=== PATIENT | male | born 1995 | race Caucasian/White ===

== ENCOUNTER 2022-11-04 17:14 | Emergency (ER) | payer SELFPAY ==
[2022-11-04 17:19] VITALS: BP 152/94; PULSE 78; RESP 20; TEMP 37.3; O2SAT 100; BMI 25.1
--- NOTE | 2022-11-04 17:26 | ED_ITS ---
HPI - Dental/Oral General Chief complaint: Dental/Oral Stated complaint: DENTAL PAIN Time Seen by Provider: 11/04/22 17:22 Source: patient Mode of arrival: walk-in Limitations: no limitations History of Present Illness HPI Narrative: patient is a 26-year-old male who presents to the emergency department for continued swelling to the right lower jaw. Patient has been seen in this emergency department previously for dental issues. He states he saw a dentist who would not give him any additional antibiotics because he needs a root canal and he does not have insurance to have this procedure. He took his last dose of amoxicillin earlier today for swelling and abscess to the right mandible. He states in the last day, the area has opened and started to drain. He reports improvement of swelling since this began but he is concerned that the abscess is still present. He has had no fevers or vomiting. Related Data Home Medications Medication Instructions Recorded Confirmed buspirone 10 mg tablet 10 mg PO DAILY 11/04/22 11/04/22 thyroid (pork) 30 mg tablet (MAINTENANCE DIRECTOR 30 mg PO DAILY 11/04/22 11/04/22 Thyroid) Previous Rx's Medication Instructions Recorded clindamycin HCl 150 mg capsule 300 mg PO Q6H 7 days #56 caps 11/04/22 naproxen sodium 550 mg tablet 550 mg PO BID PRN pain #10 tabs 11/04/22 Allergies Allergy/AdvReac Type Severity Reaction Status Date / Time No Known Drug Allergies Allergy Verified 11/04/22 17:17 Review of Systems ROS Constitutional Denies: fever or chills Ears, nose, mouth, and throat Denies: throat pain Cardiovascular Denies: chest pain Respiratory Denies: shortness of breath or cough Gastrointestinal Denies: nausea or vomiting Musculoskeletal Denies: back pain Integumentary/Breast Denies: rash Neurological Reports: headache Allergic/Immunologic Denies: hives PFSH PFSH Social History Smoking status: Former smoker Exam Narrative Exam Narrative: Gen.: Awake, alert, in no distress Head: Normocephalic, atraumatic ENT: Moist mucous membranes, edema of the gumline noted to the right mandible over tooth #29. No active drainage. No redness or swelling under the tongue. Clear speech. Respiratory: No respiratory distress Extremities: Moves extremities equally Psych: Normal mood and affect Neuro: No focal neuro deficit Skin: Warm, dry, intact Constitutional Vital Signs, click to edit/add: Last Vital Signs Temp 99.1 F 11/04/22 17:19 Pulse 78 11/04/22 17:19 Resp 20 11/04/22 17:19 BP 152/94 H 11/04/22 17:19 Pulse Ox 100 11/04/22 17:19 O2 Del Method Room Air 11/04/22 17:19 Course Vital Signs Vital signs: Vital Signs Temperature 99.1 F 11/04/22 17:19 Pulse Rate 78 11/04/22 17:19 Respiratory Rate 20 11/04/22 17:19 Blood Pressure 152/94 H 11/04/22 17:19 Pulse Oximetry 100 11/04/22 17:19 Oxygen Delivery Method Room Air 11/04/22 17:19 Temperature 99.1 F 11/04/22 17:19 Pulse Rate 78 11/04/22 17:19 Respiratory Rate 20 11/04/22 17:19 Blood Pressure 152/94 H 11/04/22 17:19 Pulse Oximetry 100 11/04/22 17:19 Oxygen Delivery Method Room Air 11/04/22 17:19 MDM - Dental/Oral MDM Narrative Medical decision making narrative: patient with healing abscess, will be started on seven days of clindamycin, encouraged follow-up with a dentist for definitive management. Return to the Emergency Room if symptoms change or worsen. Dental analgesia provided with NSAIDs for pain. Medical Records Attestation: I reviewed the patient's medical records. Discharge Plan Discharge Chief Complaint: Dental/Oral Clinical Impression: Toothache, Dental abscess Patient Disposition: Home, Self-Care Time of Disposition Decision: 17:35 Condition: Good Prescriptions / Home Meds: New clindamycin HCl 150 mg capsule 300 mg PO Q6H 7 Days Qty: 56 0RF naproxen sodium 550 mg tablet 550 mg PO BID PRN (Reason: pain) Qty: 10 0RF No Action buspirone 10 mg tablet 10 mg PO DAILY thyroid (pork) [MAINTENANCE DIRECTOR Thyroid] 30 mg tablet 30 mg PO DAILY Instructions: Dental Abscess (ED), Toothache (ED) Additional Instructions: follow up dentist Stand Alone Forms: Portal Instructions Referrals: ALEJANDRA POLLOCK DO [Primary Care Provider] - 1 week
[2022-11-04] MEDS: BENZOCAINE 30 ML, lidocaine HCL 15 ML MM (17:45)
[2022-11-04 17:46] VITALS: BP 148/82; PULSE 82; RESP 18; O2SAT 98
== END 2022-11-04 17:46 | disposition home or self-care (01) ==
PROVIDERS: Emergency Provider Emergency Medicine; PCP Family Medicine
DX: K04.7 Periapical abscess without sinus (principal); K08.89 Other specified disorders of teeth and supporting structures; Z79.899 Other long term (current) drug therapy; Z87.891 Personal history of nicotine dependence
CPT/HCPCS: 99283

== ENCOUNTER 2023-01-16 08:46 | Emergency (ER) | payer SELFPAY ==
[2023-01-16 08:53] VITALS: BP 144/80; PULSE 80; RESP 16; TEMP 37.1; O2SAT 100; BMI 25.1
--- NOTE | 2023-01-16 09:01 | PC.NURSE ---
pt c/o epigatric pain today into chest. has had h/o GERD. believes being on clindamycin for tooth infection is making acid reflux worse. denies any URI sx lately or any radiation anywhere.
--- NOTE | 2023-01-16 09:10 | ED.GENADUL1 ---
HPI - General Adult General Chief complaint: Chest Pain Stated complaint: CHEST PAIN Time Seen by Provider: 01/16/23 09:02 Mode of arrival: walk-in Limitations: no limitations History of Present Illness HPI narrative: this patient's here for substernal discomfort. He says it feels like acid reflux. He is now on day five of clindamycin. He attributes it to the clindamycin. In fact when he doubled his dose of clindamycin symptoms got worse. He does not have any nausea vomiting or diaphoresis. He has no shortness of breath. He's not had any recent viral type symptomatology. He is placed on the clindamycin because of a tooth infection. The pain is a little bit better now. He's not having any difficulty swallowing. Does not have a history of arrhythmia or cardiac problems. Otherwise he is healthy. Related Data Home Medications Medication Instructions Recorded Confirmed buspirone 10 mg tablet 10 mg PO DAILY 11/04/22 11/04/22 thyroid (pork) 30 mg tablet (PAINTER TUMBLING BARREL 30 mg PO DAILY 11/04/22 11/04/22 Thyroid) Previous Rx's Medication Instructions Recorded clindamycin HCl 150 mg capsule 300 mg PO Q6H 7 days #56 caps 11/04/22 naproxen sodium 550 mg tablet 550 mg PO BID PRN pain #10 tabs 11/04/22 Allergies Allergy/AdvReac Type Severity Reaction Status Date / Time No Known Drug Allergies Allergy Verified 01/16/23 08:53 [facility] Social History Smoking status: Never smoker Exam Narrative Exam Narrative: awake alert oriented ?3 pleasant vital signs are stable twelve-lead EKG done on arrival is normal as noted below. Constitutional skin is warm dry mucous membranes are moist. No evidence dehydration. HEENT there he does have new dental hardware in place. Exam of the molars were he has some discomfort there is no pointing abscess fluctuance or obvious gingivitis. Tongue uvula and palate are normal. Lungs were clear with no wheezes rales or rhonchi. Heart sounds are normal with no clicks rubs gallops or murmur. Legs did not have any pain or discomfort or swelling. Constitutional Vital Signs, click to edit/add: Last Vital Signs Temp 98.7 F 01/16/23 08:53 Pulse 80 01/16/23 08:53 Resp 16 01/16/23 08:53 BP 144/80 H 01/16/23 08:53 Pulse Ox 100 01/16/23 08:53 O2 Del Method Room Air 01/16/23 08:53 Course Vital Signs Vital signs: Vital Signs Temperature 98.7 F 01/16/23 08:53 Pulse Rate 80 01/16/23 08:53 Respiratory Rate 16 01/16/23 08:53 Blood Pressure 144/80 H 01/16/23 08:53 Pulse Oximetry 100 01/16/23 08:53 Oxygen Delivery Method Room Air 01/16/23 08:53 Temperature 98.7 F 01/16/23 08:53 Pulse Rate 80 01/16/23 08:53 Respiratory Rate 16 01/16/23 08:53 Blood Pressure 144/80 H 01/16/23 08:53 Pulse Oximetry 100 01/16/23 08:53 Oxygen Delivery Method Room Air 01/16/23 08:53 Medical Decision Making MDM Narrative Medical decision making narrative: patient has classic gastric reflux-type symptoms. He was advised to avoid caffeine products, alcohol, large meals. He'll be placed on Augmentin for five days. He'll be placed on Anaprox for the discomfort. Any should stop the clindamycin Discharge Plan Discharge Chief Complaint: Chest Pain Clinical Impression: Gastro-esophageal reflux Time of Disposition Decision: 09:13 Prescriptions / Home Meds: No Action buspirone 10 mg tablet 10 mg PO DAILY thyroid (pork) [PAINTER TUMBLING BARREL Thyroid] 30 mg tablet 30 mg PO DAILY clindamycin HCl 150 mg capsule 300 mg PO Q6H 7 Days Qty: 56 0RF naproxen sodium 550 mg tablet 550 mg PO BID PRN (Reason: pain) Qty: 10 0RF Additional Instructions: stop clindamycin/start Augmentin. Use Anaprox for pain Stand Alone Forms: Portal Instructions Referrals: ALEJANDRA POLLOCK DO [Primary Care Provider] - 1 week
--- NOTE | 2023-01-16 09:22 | ECG_ITS ---
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
== END 2023-01-16 09:21 | disposition home or self-care (01) ==
LOC: ER 09:11
PROVIDERS: Emergency Provider Emergency Medicine Emergency Medical Services; PCP Family Medicine
DX: K21.9 Gastro-esophageal reflux disease without esophagitis (principal); Z79.899 Other long term (current) drug therapy
CPT/HCPCS: 93005; 99283

== ENCOUNTER 2023-02-26 16:25 | Outpatient (OUT) | payer SELFPAY ==
--- OUTSIDE RECORDS SUMMARY | 2023-02-26 16:29 | XMS_ITS | CCD ---
Author Name Unknown Address [address] [facility] [address] [place] [id number] Organization [facility] Care Team Providers Care Special Education Teacher Name Role Phone PHYSICIAN, DEFAULT Unavailable Unavailable PHYSICIAN, DEFAULT Unavailable Unavailable PHYSICIAN, DEFAULT Unavailable Unavailable PHYSICIAN, DEFAULT Unavailable Unavailable PARK, DR POPPY Hernandez Attending Unavailable PARK, DR POPPY Hernandez Consulting Unavailable PARK, DR POPPY Hernandez Admitting Unavailable POLLOCK, DR ALEJANDRA Cummins Primary Care Unavailable POLLOCK, DR ALEJANDRA Cummins Attending Unavailable POLLOCK, DR ALEJANDRA Cummins Consulting Unavailable POLLOCK, DR ALEJANDRA Cummins Primary Care Unavailable POLLOCK, DR ALEJANDAR Cummins Admitting Unavailable POLLOCK, DR ALEJANDRA Cummins Attending Unavailable POLLOCK, DR ALEJANDRA Cummins Consulting Unavailable POLLOCK, DR ALEJANDRA Cummins Primary Care Unavailable POLLOCK, DR ALEJANDRA Cummins Admitting Unavailable PARK, DR POPPY Hernandez Attending Unavailable PARK, DR POPPY Hernandez Admitting Unavailable POLLOCK, DR ALEJANDRA Cummins Primary Care Unavailable Problems Active Problems Problem Classification Problem Date Documented Da te Episodic/Chronic Disorders of teeth and jaw (4 sources) Other specified disorders of teeth and supporting structures; Translations: [OTH SPEC DISORDERS TEETH SUPP STRCT] Onset: 10-28-2021 Episodic Heart valve disorders (1 source) Cardiac murmur, unspecified; Translations: [CARDIAC MURMUR UNSPECIFIED] Onset: 01-19-2022 Episodic Screening and history of mental health and substance abuse codes (1 source) Personal history of nicotine dependence; Translations: [PERSONAL HISTORY OF NICOTINE DEPEND] Onset: 10-30-2021 Episodic Thyroid disorders (4 sources) Hypothyroidism, unspecified; Translations: [HYPOTHYROIDISM UNSPECIFIED] Onset: 01-16-2022 Chronic Past or Other Problems Problem Classification Problem Date Documented Da te Episodic/Chronic Residual codes; unclassified (4 sources) Procedure and treatment not carried out due to patient leaving prior to being seen by health care provider; Translations: [PROC AND TX NOT CARRIED OUT PT LEAVE] Onset: 06-02-2021 Episodic Results Test Name Value Interpretation Reference Range Facility ECHOCARDIO M/2D COMPLETEon 1 03-18-2021 ECHOCARDIO M/2D COMPLETE Patient: MARY OWENS Exam Date: 01/16/2022 : 1995 Gender:M Ordering : DR ALEJANDRA POLLOCK D.O. Admission #: [id number] Family : Order #: [id number] CLICK HERE TO VIEW EXAM ECHOCARDIOGRAM REPORT PROCEDURE: CARDIO PULMONARY ECHOCARDIO M/2D COMP INDICATIONS: Murmur, Palpitations COMPARISON: None. DESCRIPTION: COMPLETE ECHOCARDIOGRAM Real-time transthoracic echocardiography with 2D, M-mode, spectral and color flow Doppler performed. QUALITY: Technical quality was good. LEFT VENTRICLE: Normal chamber size. Normal left ventricular wall thickness. LV EF: Global left ventricular systolic function is normal. Visual estimation of left ventricular ejection fraction is 60%. DIASTOLIC: Normal diastolic function. ATRIAL SEPTUM: Inadequately seen. LEFT ATRIUM: Normal chamber size. RIGHT ATRIUM: Normal chamber size. RIGHT VENTRICLE: Normal chamber size. Normal right ventricular systolic function. TRICUSPID VALVE: Normal mobility and thickness. No stenosis with trivial regurgitation. No evidence of pulmonary hypertension. RVSP 31mmHg. MITRAL VALVE: Normal mobility and thickness. No mitral valve prolapse. No evidence of mitral valve stenosis. There is no mitral annular calcification. Trivial mitral regurgitation. AORTIC VALVE: Normal trileaflet appearance. No visible sclerosis. Normal leaflet mobility. No evidence of aortic valve stenosis. No aortic regurgitation. AORTIC ROOT: Normal diameter and appearance. PULMONIC VALVE: Normal thickness and mobility. No stenosis. Trivial regurgitation. PERICARDIUM: No evidence of pericardial effusion. IVC: Collapses with inspirations. Normal size CONCLUSION: Global left ventricular systolic function is normal; visually estimated ejection fraction is 60 to 65%. Normal diastolic function. The right ventricle is normal in size and systolic function. No significant valvular abnormalities. Adult Echocardiography Procedure Report Left Ventricle LVEDD (3.7 - 5.6 cm): 4.56 cm LVESD (2.2 - 4.0 cm): 3.03 cm LVIVS thickness (0.6 - 1.2 cm): 0.99 cm LVPW thickness (0.5 - 1.0 cm): 1.05 cm e': 0.18 m/s E - e': 4.55 LVOT Max Gradient: 4.31 mm[Hg] Peak Velocity (LVOT): 1.04 m/s Mean Velocity (LVOT): 0.73 m/s LVOT Diameter 2.08 cm Left Ventricular Ejection Fraction: 62.43 %, 62.43 % Left Atrium LA Volume Index (2D A2C): 61.57 ml, 61.57 ml Left Atrium Systolic Dimension: 3.23 cm Mitral Valve MV E to A Ratio: 1.80 Mitral Valve A-Wave Peak Velocity: 0.44 m/s Mitral Valve E-Wave Peak Velocity: 0.80 m/s Right Ventricle RV Internal Diastolic Dimension: 3.02 cm Aorta AO Root Diam: 2.83 cm Ascending Ao Diam: 2.46 cm Aortic Valve AoV Area (Peak Samuel): 2.65 cm2, 2.65 cm2 AoV Area (VTI): 2.33 cm2, 2.33 cm2 Peak Velocity(Antegrade Flow): 1.33 m/s Peak Gradient(Antegrade Flow): 7.08 mm[Hg] Mean Velocity(Antegrade Flow): 0.96 m/s Mean Gradient(Antegrade Flow): 4.21 mm[Hg] Velocity Time Integral: 30.43 cm Tricuspid Valve Peak Velocity (Regurgitant Flow): 2.63 m/s, 2.36 m/s, 2.42 m/s Peak Velocity: 0.61 m/s Pulmonic Valve Peak Velocity: 1.04 m/s, 1.02 m/s Peak Gradient: 4.36 mm[Hg], 4.13 mm[Hg] Right Atrium Right Atrium Systolic Pressure: 36.16 ml, 36.16 ml Dictated by: Shagufta Hanson M.D. on 01/16/2022 at 15:29 Approved by: Shagufta Hanson M.D. on 01/16/2022 at 15:32 Normal [facility] FREE T3on 01-16-2022 FREE T3 3.14 pg/mlL Normal 2.18-3.98 [facility] Comment on above: Performed By: #### F T3, CMP, TSH #### [facility] [address] [place] [address] Dr. Patsy Funk FREE T4on 01-16-2022 Free T4 [Mass/Vol] 0.79 ng/dL Normal 0.76-1.46 [facility] Comment on above: Performed By: #### F T4 #### [facility] [address] [address] [address] Patsy Funk PROF 14(COMP METB)on 01-16- 022 Albumin [Mass/Vol] 4.2 g/dL Normal 3.4-5.0 [facility] Comment on above: Performed By: #### F T3, CMP, TSH #### [facility] [address] [address] [address] Patsy Funk Albumin/Globulin [Mass ratio] 1.2 {ratio} Normal [facility] Comment on above: Performed By: #### F T3, CMP, TSH #### [facility] [address] [address] [address] Patsy Funk ALP [Catalytic activity/Vol] 70 U/L Normal 46-116 [facility] Comment on above: Performed By: #### F T3, CMP, TSH #### [facility] [address] [address] [address] Patsy Funk ALT [Catalytic activity/Vol] 22 U/L Normal 16-63 [facility] Comment on above: Performed By: #### F T3, CMP, TSH #### [facility] [address] [address] [address] Patsy Funk Anion gap [Moles/Vol] 12.2 mmol/L Normal [facility] Comment on above: Performed By: #### F T3, CMP, TSH #### [facility] [address] [address] [address] Patsy Funk AST [Catalytic activity/Vol] 18 U/L Normal 15-37 [facility] Comment on above: Performed By: #### F T3, CMP, TSH #### [facility] [address] [place] [address] Dr. Patsy Funk Bilirubin [Mass/Vol] 0.7 mg/dL Normal 0.2-1.0 [facility] Comment on above: Performed By: #### F T3, CMP, TSH #### [facility] [address] [place] [address] Dr. Patsy Funk Calcium [Mass/Vol] 9.3 mg/dL Normal 8.5-10.1 [facility] Comment on above: Performed By: #### F T3, CMP, TSH #### [facility] [address] [address] [address] Patsy Funk Chloride [Moles/Vol] 104 mmol/L Normal 98-107 [facility] Comment on above: Performed By: #### F T3, CMP, TSH #### [facility] [address] [address] [address] Patsy Funk CO2 [Moles/Vol] 28.0 mmol/L Normal 21.0-32.0 [facility] Comment on above: Performed By: #### F T3, CMP, TSH #### [facility] [address] [place] [address] Dr. Patsy Funk Creatinine [Mass/Vol] 0.78 mg/dL Normal 0.70-1.30 [facility] Comment on above: Performed By: #### F T3, CMP, TSH #### [facility] [address] [address] [address] Patsy Funk EGFR-AF AZERBAIJANI >60 Normal >=60 [facility] Comment on above: Performed By: #### F T3, CMP, TSH #### [facility] [address] [place] [address] Dr. Patsy Funk EGFR-NON AF AZERBAIJANI >60 Normal >=60 [facility] Comment on above: Performed By: #### F T3, CMP, TSH #### [facility] [address] [address] [address] Patsy Funk Globulin (S) [Mass/Vol] 3.5 g/dL Normal [facility] Comment on above: Performed By: #### F T3, CMP, TSH #### [facility] [address] [address] [address] Patsy Funk Glucose [Mass/Vol] 87 mg/dL Normal 74-106 [facility] Comment on above: Performed By: #### F T3, CMP, TSH #### [facility] [address] [address] [address] Patsy Funk Potassium [Moles/Vol] 4.2 mmol/L Normal 3.5-5.1 [facility] Comment on above: Performed By: #### F T3, CMP, TSH #### [facility] [address] [place] [address] Dr. Patsy Funk Protein [Mass/Vol] 7.7 g/dL Normal 6.4-8.2 [facility] Comment on above: Performed By: #### F T3, CMP, TSH #### [facility] [address] [place] [address] Dr. Patsy Funk Sodium [Moles/Vol] 140 mmol/L Normal 136-145 [facility] Comment on above: Performed By: #### F T3, CMP, TSH #### [facility] [address] [place] [address] Dr. Patsy Funk Urea nitrogen [Mass/Vol] 13.0 mg/dL Normal 7.0-18.0 [facility] Comment on above: Performed By: #### F T3, CMP, TSH #### [facility] [address] [place] [address] Dr. Patsy Funk Urea nitrogen/Creatinine [Mass ratio] 16.7 mg/mg Normal [facility] Comment on above: Performed By: #### F T3, CMP, TSH #### [facility] [address] [place] [address] Dr. Patsy Funk TSHon 01-16-2022 TSH 0.690 uIU/mL Normal 0.358-3.740 [facility] Comment on above: Performed By: #### F T3, CMP, TSH #### [facility] [address] [place] [address] Dr. Patsy Funk FREE T3on 03-21-2021 FREE T3 2.98 pg/mlL Normal 2.77-5.27 [facility] Comment on above: Performed By: #### F T3, TSH #### [facility] [address] [place] [address] Dr. Patsy Funk FREE T4on 03-21-2021 Free T4 [Mass/Vol] 0.79 ng/dL Normal 0.78-2.19 [facility] Comment on above: Performed By: #### F T4 #### [facility] [address] [place] [address] Dr. Patsy Funk TSHon 03-21-2021 TSH 0.673 uIU/mL Normal 0.470-4.680 [facility] Comment on above: Performed By: #### F T3, TSH #### [facility] [address] [place] [address] Dr. Patsy Funk TSH RANGE SEE BELOW Normal [facility] Comment on above: Result Comment: <0.3 4 UIU/ml HYPERTHYROID 0.34-5.60 UIU/ml EUTHYROID >5.60 UIU/ml HYPOTHYROID Performed By: #### F T3, TSH #### [facility] [address] [place] [address] Dr. Patsy Funk Registrationon 02-26-2021 Registration [id number]# 1.00CD:127 Normal [facility] Consenton 02-23-2021 Consent [id number]# 1.00CD:127 Normal [facility] Lab Reportson 01-09-2021 Lab Reports [id number]#1 .00CD:127 Normal [facility] Semen Analysis, Fertilityon 01-08-2021 Abnormal Sperm Morphology 42 % [facility] Comment on above: Result Comment: WHO Standards used to classify morphology. Performed By: #### S EMCOMP #### [facility] [address] Abstinence Period, Semen A WEEK [facility] Comment on above: Performed By: #### S EMCOMP #### [facility] [address] Container Type, Semen Cup, Sterile [facility] Comment on above: Performed By: #### S EMCOMP #### [facility] [address] Immature Sperm 1 % Normal [facility] Comment on above: Performed By: #### S EMCOMP #### [facility] [address] [place] [address] Immotile Sperm 25 % Normal [facility] Comment on above: Performed By: #### S EMCOMP #### [facility] [address] [place] [address] Non-Progression Sperm Motili 1 % Normal [facility] Comment on above: Performed By: #### S EMCOMP #### [facility] [address] [place] [address] Normal Sperm Morphology 57 % Normal >/=30 [facility] Comment on above: Result Comment: WHO Standards used to classify morphology. Performed By: #### S EMCOMP #### [facility] [address] [place] [address] Rapid Progression Sperm Motili 72 % [facility] Comment on above: Result Comment: Refe rence: Total of Rapid and Slow Progression is >/= 50% or Rapid Progression only is >/= 25% Decreased motility percentage may be the result of non-viable or non-motile sperm. Performed By: #### S EMCOMP #### [address] Round Cell Concent, Semen 4 10*6/mL High <1 [facility] Comment on above: Result Comment: (Pot entially WBC's) Performed By: #### S EMCOMP #### [facility] [address] [place] [address] Semen Collection Method Masturbation [facility] Comment on above: Performed By: #### S EMCOMP #### [facility] [address] [place] [address] Semen Liquefaction Liquefied @ 60 min. [facility] Comment on above: Result Comment: PERF ORMED BY: [place] [address] PATHOLOGIST [employer] BONDER LESTER ROSSI M.D. Performed By: #### S EMCOMP #### [facility] [address] Semen Viscosity Normal Normal Normal [facility] Comment on above: Performed By: #### S EMCOMP #### [facility] [address] Semen Volume 3.5 mL Normal 2.0-5.0 [facility] Comment on above: Performed By: #### S EMCOMP #### [facility] [address] Slow Progression Sperm Motili 2 % Normal [facility] Comment on above: Performed By: #### S EMCOMP #### [facility] [address] Sperm Concentration 46 10*6/mL Normal >=20 [facility] Comment on above: Performed By: #### S EMCOMP #### [facility] [address] [place] [address] Lab Reportson 12-23-2020 Lab Reports [id number] .00CD:127 Normal [facility] Lab Reports [id number] .00CD:127 Normal [facility] Lab Reports [id number] .00CD:127 Normal [facility] Lab Reports [id number] .00CD:127 Normal [facility] Follicle Stimulating Hormone on 12-20-2020 Follicle Stimulating Hormone 6.5 m[iU]/mL Normal [facility] Comment on above: Result Comment: FEMA LE NORMALS (PREMENOPAUSE) MID-FOLLICULAR PHASE: 3.9-8.8 mIU/mL MID-CYCLE PEAK: 4.5-22.5 mIU/mL MID-LUTEAL PHASE: 1.8-5.1 mIU/mL FEMALE NORMALS (POSTMENOPAUSE): 16.7-113.6 mIU/mL MALE NORMALS: 1.3-19.3 mIU/mL Performed By: #### T EST, PRL, FSH #### [address] #### LH #### [facility] , Luteinizing Hormoneon 2020 Luteinizing Hormone 7.7 m[iU]/mL Normal 1.7-8.6 [facility] Comment on above: Result Comment: Perf ormed at: - [facility] [address] [id number] [employer] Machine Operator: Carrington Gayle PhD, Phone: [phone] PERFORMED BY: [place] [address] PATHOLOGIST [employer] LESTER ROSSI M.D. Performed By: #### T EST, PRL, FSH #### [address] #### LH #### [facility] , Prolactinon 12-20-2020 Prolactin 7.96 ng/mL Normal 2.64-13.13 [facility] Comment on above: Result Comment: PERF ORMED BY: [place] [address] PATHOLOGIST [employer] LESTER ROSSI M.D. Performed By: #### T EST, PRL, FSH #### [address] #### LH #### [facility] , Semen Analysis, Fertilityon 12-20-2020 Abnormal Sperm Morphology 44 % Normal [facility] Comment on above: Result Comment: WHO Standards used to classify morphology. Performed By: #### S EMCOMP #### [address] Abstinence Period, Semen [address] [facility] Comment on above: Result Comment: ADOLFO LE Performed By: #### S EMCOMP #### [address] Container Type, Semen Other Normal [facility] Comment on above: Performed By: #### S EMCOMP #### [facility] [address] [place] [address] Immature Sperm 8 % Normal [facility] Comment on above: Performed By: #### S EMCOMP #### [facility] [address] [place] [address] Immotile Sperm 34 % Normal [facility] Comment on above: Performed By: #### S EMCOMP #### [facility] [address] [place] [address] Non-Progression Sperm Motili 3 % Normal [facility] Comment on above: Performed By: #### S EMCOMP #### [facility] [address] [place] [address] Normal Sperm Morphology 48 % Normal >/=30 [facility] Comment on above: Result Comment: WHO Standards used to classify morphology. Performed By: #### S EMCOMP #### [facility] [address] [place] [address] Rapid Progression Sperm Motili 60 % [facility] Comment on above: Result Comment: Refe rence: Total of Rapid and Slow Progression is >/= 50% or Rapid Progression only is >/= 25% Decreased motility percentage may be the result of non-viable or non-motile sperm. Performed By: #### S EMCOMP #### [address] Round Cell Concent, Semen 7 10*6/mL High <1 [facility] Comment on above: Result Comment: (Pot entially WBC's) Performed By: #### S EMCOMP #### [facility] [address] [place] [address] Semen Collection Method Masturbation [facility] Comment on above: Performed By: #### S EMCOMP #### [facility] [address] [place] [address] Semen Liquefaction Liquefied @ 180 min. [facility] Comment on above: Result Comment: PERF ORMED BY: [place] [address] PATHOLOGIST [employer] LESTER ROSSI M.D. Performed By: #### S EMCOMP #### [facility] [address] [place] [address] Semen Viscosity High Critically abnormal Normal [facility] Comment on above: Performed By: #### S EMCOMP #### [facility] [address] [place] [address] Semen Volume 3.5 mL Normal 2.0-5.0 [facility] Comment on above: Performed By: #### S EMCOMP #### [facility] [address] [place] [address] Slow Progression Sperm Motili 3 % Normal [facility] Comment on above: Performed By: #### S EMCOMP #### [facility] [address] [place] [address] Sperm Concentration 39 10*6/mL Normal >=20 [facility] Comment on above: Performed By: #### S EMCOMP #### [address] Testosteroneon 12-20-2020 Testosterone 4.56 ng/mL Normal 1.75-7.81 [facility] Comment on above: Result Comment: PERF ORMED BY: [place] [address] PATHOLOGIST [employer] LESTER ROSSI M.D. Performed By: #### T EST, PRL, FSH #### [facility] [address] [place] [address] #### LH #### [facility] , Formson 12-19-2020 Forms [id number] .00CD:127 Normal [facility] Ambulatory Clinical Summaryo n 12-18-2020 Ambulatory Clinical Summary {[id number] Normal [facility] Ambulatory Clinical Summary {[id number]}CD:[id number] [facility] Patient Educationon 12-19-19 Patient Education Urology Male Infertility Male infertility refers to a man's inability to get a woman (get her to conceive) after a year of having sex regularly without using control. Both men and women can have fertility problems. What are the causes? This condition may be caused by: ? Problems with sperm. Infertility can result if a man is: ? Not producing enough sperm (low sperm count). ? Not producing enough sperm of normal size and shape (poor sperm morphology). ? Producing sperm that are not able to reach the egg (poor motility). ? Problems in a man's reproductive organs, such as: ? Enlarged veins (varicoceles), cysts (spermatoceles), or tumors of the testicles. ? Sexual dysfunction, including inability to have an erection. ? Injury to the testicles. ? Having had a testicle that did not drop to its location in the scrotum (undescended testicle). ? A defect, such as not having the tubes that carry sperm (vas deferens). ? Lack of certain hormones. ? Certain medical conditions. These may include: ? Diabetes. ? Cancer and cancer treatments, such as chemotherapy or radiation. ? Klinefelter syndrome. This is an inherited genetic disorder. ? Thyroid problems, such as an underactive or overactive thyroid. ? Cystic fibrosis. ? Infections. ? Sexually transmitted diseases. Infertility can be linked to more than one cause. The cause of infertility in some men is not known (unexplained infertility). What increases the risk? ? Age. A man's fertility declines with age. ? Smoking tobacco. ? Excessive alcohol use. ? Obesity. ? Emotional stress. ? Exposure of heat to the testicles, such as frequent use of a hot tub or sauna. ? Using drugs such as anabolic steroids, cocaine, and marijuana. ? Being exposed to environmental toxins, such as pesticides and lead. What are the signs or symptoms? The main sign of infertility in men is the inability to get a woman to conceive. How is this diagnosed? This condition may be diagnosed using: ? Semen tests to check sperm count, morphology, and motility. ? Blood tests to check hormone levels. ? Ultrasound of the scrotum to check for a varicocele or problems with the testicles. ? Transrectal ultrasound to check the prostate gland and to look for problems with the tubes that transport the semen (seminal vesicles). ? Taking a small sample of tissue from inside a testicle (biopsy). This is examined under a microscope. ? Blood tests to check for genetic abnormalities (genetic testing). To be diagnosed with infertility, both partners will have a physical exam. Both partners will also have an extensive medical and sexual history taken. Additional tests may be done. How is this treated? Treatment depends on the cause of infertility. Most cases of infertility in men are treated with medicine, surgery, or lifestyle changes. ? Men may take medicine to: ? Correct hormone problems. ? Treat other health conditions. ? Treat infections. ? Treat sexual dysfunction. ? Surgery may be done to: ? Remove blockages in the reproductive tract. ? Correct other structural problems of the reproductive tract. ? Lifestyle changes, such as: ? Reducing or not drinking alcohol. ? Stopping use of drugs such as anabolic steroids, cocaine, and marijuana. ? Losing weight. ? Stopping smoking. ? Using stress reduction techniques. Assisted reproductive technology (ART) Assisted reproductive technology (ART) refers to all treatments and procedures that combine eggs and sperm outside the body to try to help a couple conceive. Sperm is collected through normal ejaculation or surgery, or from a donor. ART is often combined with fertility drugs to stimulate ovulation in the woman. Sometimes ART is done using eggs retrieved from another woman's body (donor eggs) or from previously frozen fertilized eggs (embryos). There are different types of ART. These include: ? Intrauterine insemination (IUI). A long, thin tube is used to place sperm directly into a woman's uterus. This procedure: ? Is effective for infertility caused by sperm problems, including low sperm count and low motility. ? Can be used in combination with fertility drugs. ? In vitro fertilization (IVF). This is done when a woman's fallopian tubes are blocked or when a man has low sperm count. In this procedure: ? Fertility drugs are used to stimulate the ovaries to produce multiple eggs. ? Once mature, these eggs are removed from the body and combined with the sperm to be fertilized. ? The fertilized eggs are then placed into the woman's uterus. Follow these instructions at home: ? Take [id number] and prescription medicines only as told by your health care provider. ? Do not use any products that contain nicotine or tobacco, such as cigarettes and e-cigarettes. If you need help quitting, ask your health care provider. ? If you drink alcohol, limit how much you have to 0?2 d (more content not included)... Normal [facility] Urology Phone Visit- Telehea lthon 12-18-2020 Urology Phone Visit- Telehealth Chief Complaint [employer] due to low testosterone HPI Staff [employer] referred to our office due to low testosterone from Dr. Pollock. Recent Testosterone labs were done 09/01/2020 and was at 6.0 ( 9.3-28.5). Pt states that he wanted to get his testosterone check due to having trouble building muscle, and intermittent libido sx. Pt also stated that he may have infertility problems. Dysuria: no pain or burning Incomplete bladder emptying: _ Hematuria: denies any blood in urine Frequency: normal Urgency: none Nocturia: none Stream: average to strong stream, pt has intermittent straining, no hesitation no intermittent stream Post void dripping: none Wearing pads/ Depends: _ Urge incontinence: none Stress incontinence: none Incontinence without Sensory Awareness: none Abdominal pain: none Sexual complaints: no pain with erections, no blood in semen, No pain or burning with orgasms. No curving of penis. History of Present Illness Reviewed UA and testosterone. There have been no associated fever, chills, flank pain or blood in the urine. Pt. denies any pain/burning with urination at this time. Review of Systems PHQ Score Initial Depression Screen Score: 0 ROS - Provider Constitutional: denies weight loss, denies hot flashes. Eyes: denies eye problems. Gastrointestinal: denies nausea, denies vomiting. Cardiovascular: denies chest pain or angina. Integumentary: no dryness Musculoskeletal: denies musculoskeletal symptoms. ENMT: denies otolaryngeal symptoms. Respiratory: no shortness of breath. Heme/Lymph: denies easy bleeding tendency, denies easy bruising tendency. Psychiatric: no confusion, no anxiety. Genitourinary: denies dysuria, denies hematuria, denies discharge, denies urinary frequency, denies urinary hesitancy, denies nocturia, denies incontinence, denies genital sores, denies decreased libido, and denies erectile dysfunction. Physical Exam Vitals & Measurements HR: 69(Peripheral) RR: 18 BP: 144/91 HT: 178 cm HT: 178.0 cm WT: 78 kg WT: 78.0 kg BMI: 24.62 General Appearance: alert, no distress, well nourished, well developed male. Head: normocephalic . Eyes: normal orbit and globe. ENMT: normal examination of external ears. Chest: Lungs CTA, respirations non labored. Cardiovascular: regular rate and rhythm. Abdomen: soft, non distended, no tenderness, no mass or organomegaly, no hernia. Genitourinary: normal scrotum, normal testes, normal urethra, normal epididymis, normal vas deferens/spermatic cord. Flank Pain: none. Bladder: nonpalpable. Penis: normal shaft, normal glans. Lymph Nodes: unremarkable palpation of the cervical area. Skin: warm, dry, no bruising. Psychiatric: cooperative, affect appropriate for age, normal judgement, euthymic mood. Assessment/Plan 1. Infertility male (N46.9: Male infertility, unspecified) Pt. is concerned as he and his significant other have been unable to conceive. Free testosterone drawn on 09/01/20 - 6.0 (9.3 - 28.5). Pt. states having a decent sex drive and erections. Unremarkable exam today. UA shows no signs of blood nor infection. Will have pt. obtain a full infertility work up LH, FSH, Prolactin, Testosterone and a semen analysis. Will plan on follow-ups based on the results. All questions/concerns were discussed. Pt. to call the office if heencounters any issues prior. Pt. acknowledges understanding. I have reviewed the previous health record information and history for this pt. from Dr. Varela. Follow-up With When Contact Information NICHOLE PETIT, Abelino Hernandez, URL [address] [place] [address] [place] [address]- [phone] Additional Instructions: Patient Education Male Infertility I, Elicia Munson , personally scribed for Dr. Varela on 12/18/2020 14:00:04. . Documentation recorded by the scribe, Elicia Munson, accurately reflects the services(s) I performed and decisions made by me. Authenticated by Dr. Varela on 12/18/2020 14:04:12. Problem List/Past Medical History Ongoing Infertility male Historical No qualifying data Medications No active medications Allergies No Known Medication Allergies Social History Tobacco Former smoker, quit more than 30 days ago Tobacco Use:., 12/18/2020 Family History Diabetes mellitus type 1: Grandparent. Hypertension: Mother, Father and Grandparent. Seizure: Sister. Lab Results Ambulatory Point of Care Results Bilirubin Urine Dipstick: Negative (12/18/20 13:01:00) Blood Urine Dipstick: Negative (12/18/20 13:01:00) Glucose Urine Dipstick: Negative (12/18/20 13:01:00) Ketones Urine Dipstick: Negative (12/18/20 13:01:00) Leukocytes Urine Dipstick: Negative (12/18/20 13:01:00) Nitrite Urine Dipstick: Negative (12/18/20 13:01:00) Protein Urine Dipstick: Negative (12/18/20 13:01:00) Specific [place] Urine Dipstick: >=1.030 (12/18/20 13:01:00) Urine Appearance Urine Dipstick: Clear (12/18/20 13:01:00) Urine (more content not included)... Normal [facility] Comment on above: Result Comment: Elec tronically Signed By: Abelino VARELA MD\.br\Date and Time Signed: 12/18/20 14:04 EDT\.br\Electronically Co-Signed By: Elicia Munson MA\.br\Date and Time Co-Signed: 12/18/20 14:00 EDT Encounters Encounter Date Encounter Type Care Provider Facility Start: 01-16-2022 End: 01-17-[address] ALEJANDRA POLLOCK Facility:[facility] Start: 10-28-2021 End: 10-28-[address] POPPY PARK Facility:[facility] Start: 06-02-2021 End: 06-02-[address] POPPY PARK Facility:[facility] Start: 03-20-2021 End: 03-21-[address] ALEJANDRA POLLOCK Facility:[facility] Start: 01-14-2017 End: 01-15-2017 Ambulatory DEFAULT PHYSICIAN Facility:[facility] Start: 01-03-2017 End: 01-04-2017 Ambulatory DEFAULT PHYSICIAN Facility:[facility] Payers Date Payer Category Payer Unknown [id number] 2.16.84 [id number] 1994 Unknown [id number] 2.16.84 [id number] 1994 Unknown [id number] 2.16.84 [id number] 1994 Unknown [id number] 2.16.84 [id number] 1959 Self-pay [id number] 1960 Unknown [id number] Unknown Summary Purpose Family History No Family History Records FoundNo Family History Records FoundNo Family History Records FoundNo Family History Records Found Advance Directives No Advanced Directives Records FoundNo Advanced Directives Records FoundNo Advanced Directives Records FoundNo Advanced Directives Records Found Additional Source Comments (unrecognized sect ion and content) No Status Records FoundNo Status Records FoundNo Status Records FoundNo Status Records Found INFORMATION SOURCE (unrecogn ized section and content) DATE CREATED AUTHOR 08/12/2017 [facility] DATE CREATED AUTHOR AUTHOR'S ORGANIZ ATION 02/26/2021 [facility] DATE CREATED AUTHOR AUTHOR'S ORGANIZ ATION 03/13/2021 [facility] DATE CREATED AUTHOR AUTHOR'S ORGANIZ ATION 01/19/[address] [facility] FOR RECORDS PERTAINING TO PATIENTS WHO ARE OR HAVE BEEN ENROLLED IN A CHEMICAL DEPENDENCY/SUBSTANCEABUSE PROGRAM, SOME INFORMATION MAY BE OMITTED. This clinical summary was aggregated from multiple sources. Caution should be exercised in using it in the provision of clinical care. This summary normalizes information from multiple sources, and as a consequence, information in this document may materially change the coding, format and clinical context of patient data. In addition, data may be omitted in some cases. CLINICAL DECISIONS SHOULD BE BASED ON THE PRIMARY CLINICAL RECORDS. [employer] [facility]. provides no warranty or guarantee of the accuracy or completeness of information in this document.
[2023-02-26 16:50] LABS: Basophils Percent Auto 0.3 % (0.2-2.0); Eosinophils Absolute Auto 0.3 10^3/uL (0.0-0.7); Eosinophils Percent Auto 4.9 % (0.9-7.0); Hematocrit 42.6 % (42.0-54.0); Hemoglobin 14.3 g/dL (14.0-18.0); Lymphocytes Absolute Auto 1.8 10^3/uL (1.2-3.8); Lymphocytes Percent Auto 31.8 % (20.5-60.0); Mean Corpuscular HGB Conc 33.6 g/dL (29.9-35.2); Mean Corpuscular Hemoglobin 29.9 pg (25.9-34.0); Mean Corpuscular Volume 89.1 fL (80.0-94.0); Mean Platelet Volume 9.2 fL (9.5-13.5); Monocytes Absolute Auto 0.4 10^3/uL (0.3-0.8); Monocytes Percent Auto 7.3 % (1.7-12.0); Neutrophils Absolute Auto 3.2 10^3/uL (1.4-6.5); Neutrophils Percent Auto 55.7 % (43.0-75.0); Platelet Count 188 10^3/uL (150-450); Red Blood Count 4.78 10^6/uL (4.70-6.10); Red Cell Distribution Width 12.8 % (11.0-15.0); White Blood Count 5.7 10^3/uL (4.0-11.0)
[2023-02-26 17:43] LABS: Free T4 0.78 ng/dL (0.76-1.46)
[2023-02-26 17:47] LABS: Alanine Aminotransferase 27 U/L (16-63); Albumin Globulin Ratio 1.1; Albumin Level 3.8 g/dL (3.4-5.0); Alkaline Phosphatase 78 U/L (46-116); Anion Gap 9.1; Aspartate Amino Transferase 13 U/L (15-37); BUN Creatinine Ratio 11.8; Bilirubin Total 0.4 mg/dL (0.2-1.0); Calcium 8.9 mg/dL (8.5-10.1); Carbon Dioxide 29.1 mmol/L (21.0-32.0); Chloride 106 mmol/L (98-107); Estimated GFR (African America >60 (>=60); Estimated GFR (Non-African Ame >60 (>=60); Free T3 3.43 pg/mL (2.18-3.98); Globulin 3.6 g/dL; Glucose 106 mg/dL (74-106); Potassium 3.2 mmol/L (3.5-5.1); Sodium 141 mmol/L (136-145); Thyroid Stimulating Hormone 0.454 uIU/mL (0.358-3.740); Total Protein 7.4 g/dL (6.4-8.2)
[2023-02-28 06:09] LABS: HBsAg Screen Negative (Negative); HCV Ab Non Reactive (Non Reactive); HIV Ab/p24 Ag Screen Non Reactive (Non Reactive); Hep A Ab, IgM Negative (Negative); Hep B Core Ab, IgM Negative (Negative)
[2023-03-02 09:07] LABS: Neisseria gonorrhoeae, NAA Negative (Negative)
== END 2023-02-26 16:26 | disposition home or self-care (01) ==
PROVIDERS: PCP Family Medicine; Visit Provider Family Medicine
DX: Z20.2 Contact with and (suspected) exposure to infections with a predominantly sexual mode of transmission (principal); E03.9 Hypothyroidism, unspecified
CPT/HCPCS: 36415; 80053; 80074; 84439; 84443; 84481; 85025; 86695; 86696; 87389; 87491; 87591

== ENCOUNTER 2023-03-15 10:05 | Outpatient (OUT) | payer SELFPAY ==
--- OUTSIDE RECORDS SUMMARY | 2023-03-15 10:10 | XMS_ITS | CCD ---
Author Name Unknown Address [address] [facility] [address] [place] [address] [facility] Care Team Providers Care Ax Survey Worker Name Role Phone PHYSICIAN, DEFAULT Unavailable Unavailable [...] Unavailable POLLOCK, DR ALEJANDRA Cummins Admitting Unavailable POLLOCK, DR ALEJANDRA Cummins [...] : DR ALEJANDRA POLLOCK D.O. Admission #: [id number] Family : Order #: [id number] CLICK HERE TO VIEW EXAM ECHOCARDIOGRAM REPORT [...] M.D. on 01/16/2022 at 15:32 Normal [facility] FREE T3on 01-16-2022 FREE T3 3.14 pg/mlL Normal 2.18-3.98 [facility] Comment on above: Performed By: #### F T3, CMP, TSH #### [facility] [address] [place] [address] Dr. Patsy Funk FREE T4on 01-16-2022 Free T4 [Mass/Vol] 0.79 ng/dL Normal 0.76-1.46 [facility] Comment on above: Performed By: #### F T4 #### [facility] [address] [address] [address] Patsy Funk PROF 14(COMP METB)on 01-16- 022 Albumin [Mass/Vol] 4.2 g/dL Normal 3.4-5.0 [facility] Comment on above: Performed By: #### F T3, CMP, TSH #### [facility] [address] [address] [address] Patsy Funk Albumin/Globulin [Mass ratio] 1.2 {ratio} Normal [facility] Comment on above: Performed By: #### F T3, CMP, TSH #### [facility] [address] [address] [address] Patsy Funk ALP [Catalytic activity/Vol] 70 U/L Normal 46-116 [facility] Comment on above: Performed By: #### F T3, CMP, TSH #### [facility] [address] [address] [address] Patsy Funk ALT [Catalytic activity/Vol] 22 U/L Normal 16-63 [facility] Comment on above: Performed By: #### F T3, CMP, TSH #### [facility] [address] [address] [address] Patsy Funk Anion gap [Moles/Vol] 12.2 mmol/L Normal [facility] Comment on above: Performed By: #### F T3, CMP, TSH #### [facility] [address] [address] [address] Patsy Funk AST [Catalytic activity/Vol] 18 U/L Normal 15-37 [facility] Comment on above: Performed By: #### F T3, CMP, TSH #### [facility] [address] [place] [address] Dr. Patsy Funk Bilirubin [Mass/Vol] 0.7 mg/dL Normal 0.2-1.0 [facility] Comment on above: Performed By: #### F T3, CMP, TSH #### [facility] [address] [place] [address] Dr. Patsy Funk Calcium [Mass/Vol] 9.3 mg/dL Normal 8.5-10.1 [facility] Comment on above: Performed By: #### F T3, CMP, TSH #### [facility] [address] [address] [address] Patsy Funk Chloride [Moles/Vol] 104 mmol/L Normal 98-107 [facility] Comment on above: Performed By: #### F T3, CMP, TSH #### [facility] [address] [address] [address] Patsy Funk CO2 [Moles/Vol] 28.0 mmol/L Normal 21.0-32.0 [facility] Comment on above: Performed By: #### F T3, CMP, TSH #### [facility] [address] [place] [address] Dr. Patsy Funk Creatinine [Mass/Vol] 0.78 mg/dL Normal 0.70-1.30 [facility] Comment on above: Performed By: #### F T3, CMP, TSH #### [facility] [address] [address] [address] Patsy Funk EGFR-AF ESTONIAN >60 Normal >=60 [facility] Comment on above: Performed By: #### F T3, CMP, TSH #### [facility] [address] [place] [address] Dr. Patsy Funk EGFR-NON AF ESTONIAN >60 Normal >=60 [facility] Comment on above: Performed By: #### F T3, CMP, TSH #### [facility] [address] [address] [address] Patsy Funk Globulin (S) [Mass/Vol] 3.5 g/dL Normal [facility] Comment on above: Performed By: #### F T3, CMP, TSH #### [facility] [address] [address] [address] Patsy Funk Glucose [Mass/Vol] 87 mg/dL Normal 74-106 [facility] Comment on above: Performed By: #### F T3, CMP, TSH #### [facility] [address] [address] [address] Patsy Funk Potassium [Moles/Vol] 4.2 mmol/L Normal 3.5-5.1 [facility] Comment on above: Performed By: #### F T3, CMP, TSH #### [facility] [address] [place] [address] Dr. Patsy Funk Protein [Mass/Vol] 7.7 g/dL Normal 6.4-8.2 [facility] Comment on above: Performed By: #### F T3, CMP, TSH #### [facility] [address] [place] [address] Dr. Patsy Funk Sodium [Moles/Vol] 140 mmol/L Normal 136-145 [facility] Comment on above: Performed By: #### F T3, CMP, TSH #### [facility] [address] [place] [address] Dr. Patsy Funk Urea nitrogen [Mass/Vol] 13.0 mg/dL Normal 7.0-18.0 [facility] Comment on above: Performed By: #### F T3, CMP, TSH #### [facility] [address] [place] [address] Dr. Patsy Funk Urea nitrogen/Creatinine [Mass ratio] 16.7 mg/mg Normal [facility] Comment on above: Performed By: #### F T3, CMP, TSH #### [facility] [address] [place] [address] Dr. Patsy Funk TSHon 01-16-2022 TSH 0.690 uIU/mL Normal 0.358-3.740 [facility] Comment on above: Performed By: #### F T3, CMP, TSH #### [facility] [address] [place] [address] Dr. Patsy Funk FREE T3on 03-21-2021 FREE T3 2.98 pg/mlL Normal 2.77-5.27 [facility] Comment on above: Performed By: #### F T3, TSH #### [facility] [address] [place] [address] Dr. Patsy Funk FREE T4on 03-21-2021 Free T4 [Mass/Vol] 0.79 ng/dL Normal 0.78-2.19 [facility] Comment on above: Performed By: #### F T4 #### [facility] [address] [place] [address] Dr. Patsy Funk TSHon 03-21-2021 TSH 0.673 uIU/mL Normal 0.470-4.680 [facility] Comment on above: Performed By: #### F T3, TSH #### [facility] [address] [place] [address] Dr. Patsy Funk TSH RANGE SEE BELOW Normal [facility] Comment on above: Result Comment: <0.3 4 UIU/ml HYPERTHYROID 0.34-5.60 UIU/ml EUTHYROID >5.60 UIU/ml HYPOTHYROID Performed By: #### F T3, TSH #### [facility] [address] [place] [address] Dr. Patsy Funk Registrationon 02-26-2021 Registration [id number] 1.00CD:127 Normal [facility] Consenton 02-23-2021 Consent [id number]# 1.00CD:127 Normal [facility] Lab Reportson 01-09-2021 Lab Reports [id number]#1 .00CD:127 Normal [facility] Semen Analysis, Fertilityon 01-08-2021 Abnormal Sperm Morphology 42 % [facility] Comment on above: Result Comment: WHO Standards used to classify morphology. Performed By: #### S EMCOMP #### [facility] [address] Abstinence Period, Semen A WEEK [facility] Comment on above: Performed By: #### S EMCOMP #### [facility] [address] Container Type, Semen Cup, Sterile [facility] Comment on above: Performed By: #### S EMCOMP #### [facility] [address] Immature Sperm 1 % Normal [facility] Comment on above: Performed By: #### S EMCOMP #### [facility] [address] [place] [address] Immotile Sperm 25 % Normal [facility] Comment on above: Performed By: #### S EMCOMP #### [facility] [address] [place] [address] Non-Progression Sperm Motili 1 % Normal [facility] Comment on above: Performed By: #### S EMCOMP #### [facility] [address] [place] [address] Normal Sperm Morphology 57 % Normal >/=30 [facility] Comment on above: Result Comment: WHO Standards used to classify morphology. Performed By: #### S EMCOMP #### [facility] [address] [place] [address] Rapid Progression Sperm Motili 72 % [facility] Comment on above: Result Comment: Refe rence: Total of Rapid and Slow Progression is >/= 50% or Rapid Progression only is >/= 25% Decreased motility percentage may be the result of non-viable or non-motile sperm. Performed By: #### S EMCOMP #### [address] Round Cell Concent, Semen 4 10*6/mL High <1 [facility] Comment on above: Result Comment: (Pot entially WBC's) Performed By: #### S EMCOMP #### [facility] [address] [place] [address] Semen Collection Method Masturbation [facility] Comment on above: Performed By: #### S EMCOMP #### [facility] [address] [place] [address] Semen Liquefaction Liquefied @ 60 min. [facility] Comment on above: Result Comment: PERF ORMED BY: [place] [address] PATHOLOGIST [employer] LESTER ROSSI M.D. Performed By: #### S EMCOMP #### [facility] [address] Semen Viscosity Normal Normal Normal [facility] Comment on above: Performed By: #### S EMCOMP #### [facility] [address] Semen Volume 3.5 mL Normal 2.0-5.0 [facility] Comment on above: Performed By: #### S EMCOMP #### [facility] [address] Slow Progression Sperm Motili 2 % Normal [facility] Comment on above: Performed By: #### S EMCOMP #### [facility] [address] Sperm Concentration 46 10*6/mL Normal >=20 [facility] Comment on above: Performed By: #### S EMCOMP #### [facility] [address] [place] [address] Lab Reportson 12-23-2020 Lab Reports [id number]#1 .00CD:127 Normal [facility] Lab Reports [id number]#1 .00CD:127 Normal [facility] Lab Reports [id number]#1 .00CD:127 Normal [facility] Lab Reports [id number]#1 .00CD:127 Normal [facility] Follicle Stimulating Hormone on 12-20-2020 Follicle Stimulating Hormone 6.5 m[iU]/mL Normal [facility] Comment on above: Result Comment: FEMA LE NORMALS (PREMENOPAUSE) MID-FOLLICULAR PHASE: 3.9-8.8 mIU/mL MID-CYCLE PEAK: 4.5-22.5 mIU/mL MID-LUTEAL PHASE: 1.8-5.1 mIU/mL FEMALE NORMALS (POSTMENOPAUSE): 16.7-113.6 mIU/mL MALE NORMALS: 1.3-19.3 mIU/mL Performed By: #### T EST, PRL, FSH #### [address] #### LH #### [facility] , Luteinizing Hormoneon 2020 Luteinizing Hormone 7.7 m[iU]/mL Normal 1.7-8.6 [facility] Comment on above: Result Comment: Perf ormed at: - [facility] [address] [id number] [employer] Cook: Carrington Gayle PhD, Phone: [phone] PERFORMED BY: [place] [address] PATHOLOGIST [employer]SE MANAGER LESTER ROSSI M.D. Performed By: #### T EST, PRL, FSH #### [address] #### LH #### [facility] , Prolactinon 12-20-2020 Prolactin 7.96 ng/mL Normal 2.64-13.13 [facility] Comment on above: Result Comment: PERF ORMED BY: [place] [address] PATHOLOGIST [employer]SE MANAGER LESTER ROSSI M.D. Performed By: #### T EST, PRL, FSH #### [address] #### LH #### [facility] , Semen Analysis, Fertilityon 12-20-2020 Abnormal Sperm Morphology 44 % Normal [facility] Comment on above: Result Comment: WHO Standards used to classify morphology. Performed By: #### S EMCOMP #### [address] Abstinence Period, Semen 48 HOURS Normal [facility] Comment on above: Result Comment: ADOLFO LE Performed By: #### S EMCOMP #### [address] Container Type, Semen Other Normal [facility] Comment on above: Performed By: #### S EMCOMP #### [facility] [address] [place] [address] Immature Sperm 8 % Normal [facility] Comment on above: Performed By: #### S EMCOMP #### [facility] [address] [place] [address] Immotile Sperm 34 % Normal [facility] Comment on above: Performed By: #### S EMCOMP #### [facility] [address] [place] [address] Non-Progression Sperm Motili 3 % Normal [facility] Comment on above: Performed By: #### S EMCOMP #### [facility] [address] [place] [address] Normal Sperm Morphology 48 % Normal >/=30 [facility] Comment on above: Result Comment: WHO Standards used to classify morphology. Performed By: #### S EMCOMP #### [facility] [address] [place] [address] Rapid Progression Sperm Motili 60 % [facility] Comment on above: Result Comment: Refe rence: Total of Rapid and Slow Progression is >/= 50% or Rapid Progression only is >/= 25% Decreased motility percentage may be the result of non-viable or non-motile sperm. Performed By: #### S EMCOMP #### [address] Round Cell Concent, Semen 7 10*6/mL High <1 [facility] Comment on above: Result Comment: (Pot entially WBC's) Performed By: #### S EMCOMP #### [facility] [address] [place] [address] Semen Collection Method Masturbation [facility] Comment on above: Performed By: #### S EMCOMP #### [facility] [address] [place] [address] Semen Liquefaction Liquefied @ 180 min. [facility] Comment on above: Result Comment: PERF ORMED BY: [place] [address] PATHOLOGIST [employer]SE MANAGER LESTER ROSSI M.D. Performed By: #### S EMCOMP #### [facility] [address] [place] [address] Semen Viscosity High Critically abnormal Normal [facility] Comment on above: Performed By: #### S EMCOMP #### [facility] [address] [place] [address] Semen Volume 3.5 mL Normal 2.0-5.0 [facility] Comment on above: Performed By: #### S EMCOMP #### [facility] [address] [place] [address] Slow Progression Sperm Motili 3 % Normal [facility] Comment on above: Performed By: #### S EMCOMP #### [facility] [address] [place] [address] Sperm Concentration 39 10*6/mL Normal >=20 [facility] Comment on above: Performed By: #### S EMCOMP #### [address] Testosteroneon 12-20-2020 Testosterone 4.56 ng/mL Normal 1.75-7.81 [facility] Comment on above: Result Comment: PERF ORMED BY: [place] [address] PATHOLOGIST [employer]SE MANAGER LESTER ROSSI M.D. Performed By: #### T EST, PRL, FSH #### [facility] [address] [place] [address] #### LH #### [facility] , Formson 12-19-2020 Forms [id number]#1 .00CD:127 Normal [facility] Ambulatory Clinical Summaryo n 12-18-2020 Ambulatory Clinical Summary {[id number]}CD:[id number] Normal [facility] Ambulatory Clinical Summary {[id number]}CD:[id number] Ron Yoon [facility] Patient Educationon 12-19-19 Patient Education Urology Male [...] Follow these instructions at home: ? Take uwzf-mti-fsxnlbn and prescription medicines only as told by your health care provider. ? Do not use any products that contain nicotine or tobacco, such as cigarettes and e-cigarettes. If you need help quitting, ask your health care provider. ? If you drink alcohol, limit how much you have to 0?2 d (more content not included)... 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 Normal [facility] Comment on above: Result Comment: Elec tronically [...] Start: 01-14-2017 End: 01-15-2017 Ambulatory DEFAULT PHYSICIAN Facility:[facility] Start: 01-03-2017 End: 01-04-2017 Ambulatory DEFAULT PHYSICIAN Facility:[facility] Payers Date Payer Category Payer Unknown [id number] [id number] [id number] 1994 Unknown [id number] [id number] [id number] 1994 Unknown [id number] [id number] [id number] 1994 Unknown [id number] [id number] [id number] 1959 Self-pay [id number] 1959 Unknown [id number] Unknown Summary Purpose Family History No Family [...] section and content) DATE CREATED AUTHOR 08/12/2017 [facility] DATE CREATED AUTHOR AUTHOR'S ORGANIZ ATION 02/26/2021 [facility] DATE CREATED AUTHOR AUTHOR'S ORGANIZ ATION 03/13/2021 [facility] DATE CREATED AUTHOR AUTHOR'S ORGANIZ ATION 01/19/2022 [facility] FOR RECORDS PERTAINING TO PATIENTS WHO [...] BE BASED ON THE PRIMARY CLINICAL RECORDS. [facility]. provides no warranty or guarantee of the accuracy or completeness of information in this document.
[2023-03-15 12:53] LABS: Anion Gap 10.7; BUN Creatinine Ratio 14.7; Calcium 8.5 mg/dL (8.5-10.1); Carbon Dioxide 28.7 mmol/L (21.0-32.0); Chloride 105 mmol/L (98-107); Estimated GFR (African America >60 (>=60); Estimated GFR (Non-African Ame >60 (>=60); Glucose 86 mg/dL (74-106); Potassium 3.4 mmol/L (3.5-5.1); Sodium 141 mmol/L (136-145)
== END 2023-03-15 10:06 | disposition home or self-care (01) ==
PROVIDERS: PCP Family Medicine; Visit Provider Family Medicine
DX: E87.6 Hypokalemia (principal)
CPT/HCPCS: 36415; 80048

== ENCOUNTER 2023-03-18 14:55 | Emergency (ER) | payer SELFPAY ==
[2023-03-18] VITALS (9 sets, daily range): BP systolic 137–139; BP diastolic 83–89; PULSE 63–76; RESP 17–19; TEMP 36.7; O2SAT 98–100; BMI 26.5
--- OUTSIDE RECORDS SUMMARY | 2023-03-18 15:02 | XMS_ITS | CCD ---
Author Name Unknown Address [address] [facility] [address] [place] [id number] Organization [facility] Care Team Providers Care Mannequin Decorator Name Role Phone PHYSICIAN, DEFAULT Unavailable Unavailable [...] : DR ALEJANDRA POLLOCK D.O. Admission #: [id number] Family : Order #: [id number] CLICK HERE TO VIEW EXAM ECHOCARDIOGRAM REPORT [...] M.D. on 01/16/2022 at 15:32 Normal [facility] FREE T3on 01-16-2022 FREE T3 3.14 pg/mlL Normal 2.18-3.98 [facility] Comment on above: Performed By: #### F T3, CMP, TSH #### [facility] Laboratory [address] [place] [address] Dr. Patsy Funk FREE T4on 01-16-2022 Free T4 [Mass/Vol] 0.79 ng/dL Normal 0.76-1.46 [facility] Comment on above: Performed By: #### F T4 #### [facility] Laboratory [address] [address] [address] Patsy Funk PROF 14(COMP METB)on 01-16- 022 Albumin [Mass/Vol] 4.2 g/dL Normal 3.4-5.0 [facility] Comment on above: Performed By: #### F T3, CMP, TSH #### [facility] Laboratory [address] [address] [address] Patsy Funk Albumin/Globulin [Mass ratio] 1.2 {ratio} Normal [facility] Comment on above: Performed By: #### F T3, CMP, TSH #### [facility] [address] [address] [address] Patsy Funk ALP [Catalytic activity/Vol] 70 U/L Normal 46-116 [facility] Comment on above: Performed By: #### F T3, CMP, TSH #### [facility] [address] [address] [address] Patsy Funk ALT [Catalytic activity/Vol] 22 U/L Normal 16-63 [facility] Comment on above: Performed By: #### F T3, CMP, TSH #### [facility] [address] [address] [address] Patsy Funk Anion gap [Moles/Vol] 12.2 mmol/L Normal [facility] Comment on above: Performed By: #### F T3, CMP, TSH #### [facility] [address] [address] [address] Patsy Funk AST [Catalytic activity/Vol] 18 U/L Normal 15-37 [facility] Comment on above: Performed By: #### F T3, CMP, TSH #### [facility] [address] [place] [address] Dr. Patsy Funk Bilirubin [Mass/Vol] 0.7 mg/dL Normal 0.2-1.0 [facility] Comment on above: Performed By: #### F T3, CMP, TSH #### [facility] [address] [place] [address] Dr. Patsy Funk Calcium [Mass/Vol] 9.3 mg/dL Normal 8.5-10.1 [facility] Comment on above: Performed By: #### F T3, CMP, TSH #### [facility] [address] [address] [address] Patsy Funk Chloride [Moles/Vol] 104 mmol/L Normal 98-107 [facility] Comment on above: Performed By: #### F T3, CMP, TSH #### [facility] [address] [address] [address] Patsy Funk CO2 [Moles/Vol] 28.0 mmol/L Normal 21.0-32.0 [facility] Comment on above: Performed By: #### F T3, CMP, TSH #### [facility] [address] [place] [address] Dr. Patsy Funk Creatinine [Mass/Vol] 0.78 mg/dL Normal 0.70-1.30 [facility] Comment on above: Performed By: #### F T3, CMP, TSH #### [facility] [address] [address] [address] Patsy Funk EGFR-AF COMORAN >60 Normal >=60 [facility] Comment on above: Performed By: #### F T3, CMP, TSH #### [facility] [address] [place] [address] Dr. Patsy Funk EGFR-NON AF COMORAN >60 Normal >=60 [facility] Comment on above: Performed By: #### F T3, CMP, TSH #### [facility] [address] [address] [address] Patsy Funk Globulin (S) [Mass/Vol] 3.5 g/dL Normal [facility] Comment on above: Performed By: #### F T3, CMP, TSH #### [facility] [address] [address] [address] Patsy Funk Glucose [Mass/Vol] 87 mg/dL Normal 74-106 [facility] Comment on above: Performed By: #### F T3, CMP, TSH #### [facility] [address] [address] [address] Patsy Funk Potassium [Moles/Vol] 4.2 mmol/L Normal 3.5-5.1 [facility] Comment on above: Performed By: #### F T3, CMP, TSH #### [facility] [address] [place] [address] Dr. Patsy Funk Protein [Mass/Vol] 7.7 g/dL Normal 6.4-8.2 [facility] Comment on above: Performed By: #### F T3, CMP, TSH #### [facility] [address] [place] [address] Dr. Patsy Funk Sodium [Moles/Vol] 140 mmol/L Normal 136-145 [facility] Comment on above: Performed By: #### F T3, CMP, TSH #### [facility] [address] [place] [address] Dr. Patsy Funk Urea nitrogen [Mass/Vol] 13.0 mg/dL Normal 7.0-18.0 [facility] Comment on above: Performed By: #### F T3, CMP, TSH #### [facility] [address] [place] [address] Dr. Patsy Funk Urea nitrogen/Creatinine [Mass ratio] 16.7 mg/mg Normal [facility] Comment on above: Performed By: #### F T3, CMP, TSH #### [facility] [address] [place] [address] Dr. Patsy Funk TSHon 01-16-2022 TSH 0.690 uIU/mL Normal 0.358-3.740 [facility] Comment on above: Performed By: #### F T3, CMP, TSH #### [facility] [address] [place] [address] Dr. Patsy Funk FREE T3on 03-21-2021 FREE T3 2.98 pg/mlL Normal 2.77-5.27 [facility] Comment on above: Performed By: #### F T3, TSH #### [facility] [address] [place] [address] Dr. Patsy Funk FREE T4on 03-21-2021 Free T4 [Mass/Vol] 0.79 ng/dL Normal 0.78-2.19 [facility] Comment on above: Performed By: #### F T4 #### [facility] [address] [place] [address] Dr. Patsy Funk TSHon 03-21-2021 TSH 0.673 uIU/mL Normal 0.470-4.680 [facility] Comment on above: Performed By: #### F T3, TSH #### [facility] [address] [place] [address] Dr. Patsy Funk TSH RANGE SEE BELOW Normal [facility] Comment on above: Result Comment: <0.3 4 UIU/ml HYPERTHYROID 0.34-5.60 UIU/ml EUTHYROID >5.60 UIU/ml HYPOTHYROID Performed By: #### F T3, TSH #### [facility] [address] [place] [address] Dr. Patsy Funk Registrationon 02-26-2021 Registration [id number]# 1.00CD:127 Normal [facility] Consenton 02-23-2021 Consent [id number]# 1.00CD:127 Normal [facility] Lab Reportson 01-09-2021 Lab Reports [id number]#1 .00CD:127 Normal [facility] Semen Analysis, Fertilityon 01-08-2021 Abnormal Sperm Morphology 42 % [facility] Comment on above: Result Comment: WHO Standards used to classify morphology. Performed By: #### S EMCOMP #### [facility] [address] Abstinence Period, Semen A WEEK [facility] Comment on above: Performed By: #### S EMCOMP #### [facility] [address] Container Type, Semen Cup, Sterile [facility] Comment on above: Performed By: #### S EMCOMP #### [facility] [address] Immature Sperm 1 % Normal [facility] Comment on above: Performed By: #### S EMCOMP #### [facility] [address] [place] [address] Immotile Sperm 25 % Normal [facility] Comment on above: Performed By: #### S EMCOMP #### [facility] [address] [place] [address] Non-Progression Sperm Motili 1 % Normal [facility] Comment on above: Performed By: #### S EMCOMP #### [facility] [address] [place] [address] Normal Sperm Morphology 57 % Normal >/=30 [facility] Comment on above: Result Comment: WHO Standards used to classify morphology. Performed By: #### S EMCOMP #### [facility] [address] [place] [address] Rapid Progression Sperm Motili 72 % [facility] Comment on above: Result Comment: Refe rence: Total of Rapid and Slow Progression is >/= 50% or Rapid Progression only is >/= 25% Decreased motility percentage may be the result of non-viable or non-motile sperm. Performed By: #### S EMCOMP #### [address] Round Cell Concent, Semen 4 10*6/mL High <1 [facility] Comment on above: Result Comment: (Pot entially WBC's) Performed By: #### S EMCOMP #### [facility] [address] [place] [address] Semen Collection Method Masturbation [facility] Comment on above: Performed By: #### S EMCOMP #### [facility] [address] [place] [address] Semen Liquefaction Liquefied @ 60 min. [facility] Comment on above: Result Comment: PERF ORMED BY: [place] [address] PATHOLOGIST GREENS KEEPER LESTER ROSSI M.D. Performed By: #### S EMCOMP #### [facility] [address] Semen Viscosity Normal Normal Normal [facility] Comment on above: Performed By: #### S EMCOMP #### [facility] [address] Semen Volume 3.5 mL Normal 2.0-5.0 [facility] Comment on above: Performed By: #### S EMCOMP #### [facility] [address] Slow Progression Sperm Motili 2 % Normal [facility] Comment on above: Performed By: #### S EMCOMP #### [facility] [address] Sperm Concentration 46 10*6/mL Normal >=20 [facility] Comment on above: Performed By: #### S EMCOMP #### [facility] [address] [place] [address] Lab Reportson 12-23-2020 Lab Reports [id number]#1 .00CD:127 Normal [facility] Lab Reports [id number] .00CD:127 Normal [facility] Lab Reports [id number] .00CD:127 Normal [facility] Lab Reports [id number] .00CD:127 Normal [facility] Follicle Stimulating Hormone on 12-20-2020 Follicle Stimulating Hormone 6.5 m[iU]/mL Normal [facility] Comment on above: Result Comment: FEMA LE NORMALS (PREMENOPAUSE) MID-FOLLICULAR PHASE: 3.9-8.8 mIU/mL MID-CYCLE PEAK: 4.5-22.5 mIU/mL MID-LUTEAL PHASE: 1.8-5.1 mIU/mL FEMALE NORMALS (POSTMENOPAUSE): 16.7-113.6 mIU/mL MALE NORMALS: 1.3-19.3 mIU/mL Performed By: #### T EST, PRL, FSH #### [address] #### LH #### [facility] , Luteinizing Hormoneon 2020 Luteinizing Hormone 7.7 m[iU]/mL Normal 1.7-8.6 [facility] Comment on above: Result Comment: Perf ormed at: - [facility] [address] [id number] Tuft[place] Creeler: Carrington Gayle PhD, Phone: [phone] PERFORMED BY: [place] [address] PATHOLOGIST GRE[employer] KEEPER LESTER ROSSI M.D. Performed By: #### T EST, PRL, FSH #### [address] #### LH #### [facility] , Prolactinon 12-20-2020 Prolactin 7.96 ng/mL Normal 2.64-13.13 [facility] Comment on above: Result Comment: PERF ORMED BY: [place] [address] PATHOLOGIST [employer] KEEPER LESTER ROSSI M.D. Performed By: #### T EST, PRL, FSH #### [address] #### LH #### [facility] , Semen Analysis, Fertilityon 12-20-2020 Abnormal Sperm Morphology 44 % Normal [facility] Comment on above: Result Comment: WHO Standards used to classify morphology. Performed By: #### S EMCOMP #### [address] Abstinence Period, Semen 48 HOURS Normal [facility] Comment on above: Result Comment: ADOLFO LE Performed By: #### S EMCOMP #### [address] Container Type, Semen Other Normal [facility] Comment on above: Performed By: #### S EMCOMP #### [facility] [address] [place] [address] Immature Sperm 8 % Normal [facility] Comment on above: Performed By: #### S EMCOMP #### [facility] [address] [place] [address] Immotile Sperm 34 % Normal [facility] Comment on above: Performed By: #### S EMCOMP #### [facility] [address] [place] [address] Non-Progression Sperm Motili 3 % Normal [facility] Comment on above: Performed By: #### S EMCOMP #### [facility] [address] [place] [address] Normal Sperm Morphology 48 % Normal >/=30 [facility] Comment on above: Result Comment: WHO Standards used to classify morphology. Performed By: #### S EMCOMP #### [facility] [address] [place] [address] Rapid Progression Sperm Motili 60 % [facility] Comment on above: Result Comment: Refe rence: Total of Rapid and Slow Progression is >/= 50% or Rapid Progression only is >/= 25% Decreased motility percentage may be the result of non-viable or non-motile sperm. Performed By: #### S EMCOMP #### [address] Round Cell Concent, Semen 7 10*6/mL High <1 [facility] Comment on above: Result Comment: (Pot entially WBC's) Performed By: #### S EMCOMP #### [facility] [address] [place] [address] Semen Collection Method Masturbation [facility] Comment on above: Performed By: #### S EMCOMP #### [facility] [address] [place] [address] Semen Liquefaction Liquefied @ 180 min. [facility] Comment on above: Result Comment: PERF ORMED BY: [place] [address] PATHOLOGIST GREENS KEEPER LESTER ROSSI M.D. Performed By: #### S EMCOMP #### [facility] [address] [place] [address] Semen Viscosity High Critically abnormal Normal [facility] Comment on above: Performed By: #### S EMCOMP #### [facility] [address] [place] [address] Semen Volume 3.5 mL Normal 2.0-5.0 [facility] Comment on above: Performed By: #### S EMCOMP #### [facility] [address] [place] [address] Slow Progression Sperm Motili 3 % Normal [facility] Comment on above: Performed By: #### S EMCOMP #### [facility] [address] [place] [address] Sperm Concentration 39 10*6/mL Normal >=20 [facility] Comment on above: Performed By: #### S EMCOMP #### [address] Testosteroneon 12-20-2020 Testosterone 4.56 ng/mL Normal 1.75-7.81 [facility] Comment on above: Result Comment: PERF ORMED BY: [place] [address] PATHOLOGIST [employer] KEEPER LESTER ROSSI M.D. Performed By: #### T EST, PRL, FSH #### [facility] [address] [place] [address] #### LH #### [facility] , Formson 12-19-2020 Forms [id number] .00CD:127 Normal [facility] Ambulatory Clinical Summaryo n 12-18-2020 Ambulatory Clinical Summary {[id number]}CD:[id number] Normal [facility] Ambulatory Clinical Summary {[id number]}CD:[id number] Ron Y[facility] Patient Educationon 12-19-19 Patient Education [...] Follow these instructions at home: ? Take sruf-ndb-jcqeoqs and prescription medicines only as told by your health care provider. ? Do not use any products that contain nicotine or tobacco, such as cigarettes and e-cigarettes. If you need help quitting, ask your health care provider. ? If you drink alcohol, limit how much you have to 0?2 d (more content not included)... 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 Normal [facility] Comment on above: Result Comment: Elec [...] Start: 01-14-2017 End: 01-15-2017 Ambulatory DEFAULT PHYSICIAN Facility:[facility] Start: 01-03-2017 End: 01-04-2017 Ambulatory DEFAULT PHYSICIAN Facility:[facility] Payers Date Payer Category Payer Unknown [id number] 2.16.84 [id number] 1995 Unknown [id number] 2.16.84 [id number] 1994 Unknown [id number] 2.16.84 [id number] 1994 Unknown [id number] 2.16.84 [id number] 1960 Self-pay [id number] 1960 Unknown [id number] Unknown Summary Purpose Family History No Family [...] section and content) DATE CREATED AUTHOR 08/12/2017 [facility] DATE CREATED AUTHOR AUTHOR'S ORGANIZ ATION 02/26/2021 [facility] DATE CREATED AUTHOR AUTHOR'S ORGANIZ ATION 03/13/2021 [facility] DATE CREATED AUTHOR AUTHOR'S ORGANIZ ATION 01/19/2022 [facility] FOR RECORDS PERTAINING TO PATIENTS WHO [...] BE BASED ON THE PRIMARY CLINICAL RECORDS. [employer] [facility]. provides no warranty or guarantee of the accuracy or completeness of information in this document.
--- NOTE | 2023-03-18 15:10 | ECG_ITS ---
[facility] Test Date: 2023-03-18 Pat Name: MARY OWENS Department: Room: - Gender: Male [employer] P[employer] Mixer: : 1995 Requested By: ALEJANDRA POLLOCK Order Number: [id number] Reading MD: WILLIAN NOVAK Measurements Intervals [place] Rate: 71 P: 75 HI: 168 QRS: 84 QRSD: 84 T: 49 QT: 370 QTc: 392 Interpretive Statements 1100 Sinus rhythm 9110 normal ECG Compared to ECG 01/16/2023 08:55:36 No significant changes Electronically Signed On 03-19-2023 6:48:44 EST by WILLIAN NOVAK
--- NOTE | 2023-03-18 15:33 | ED_ITS ---
HPI - General Adult General Chief complaint: Shortness of Breath/Dyspnea Stated complaint: SHORTNESS OF BREATH/DIZZINESS Time Seen by Provider: 03/18/23 15:06 Source: patient Mode of arrival: walk-in Limitations: no limitations History of Present Illness HPI narrative: Patient is a 27-year-old male who presents to the emergency department for increasing episodes of exertional dyspnea and dizziness. He states that his PCP recently evaluated him for this, it has been happening intermittently for weeks. He had outpatient labs that were unremarkable and he was offered pulmonary function testing. He states that he just contacted his PCP office while here in the emergency room to tell them that he was having increasing symptoms of exertional dyspnea after being at the gym today and would like to go forward w ith pulmonary function testing. He states while he was at the gym, he felt profoundly short of breath and dizzy, his symptoms have resolved at this time. He has no fevers, chills, cough, congestion, chest pain, hemoptysis, leg swelling. He states he had a cardiac echo and stress test done years ago for palpitations. 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 Related Data Home Medications Medication Instructions Recorded Confirmed buspirone 10 mg tablet 10 mg PO DAILY 11/04/22 11/04/22 thyroid (pork) 30 mg tablet ([employer] 30 mg PO DAILY 11/04/22 11/04/22 Thyroid) Previous Rx's Medication Instructions Recorded clindamycin HCl 150 mg capsule 300 mg (2 x 150 mg) PO Q6H 7 days 11/04/22 #56 caps naproxen sodium 550 mg tablet 550 mg PO BID PRN pain #10 tabs 11/04/22 Allergies Allergy/AdvReac Type Severity Reaction Status Date / Time No Known Drug Allergies Allergy Verified 01/16/23 08:53 Review of Systems ROS Constitutional Denies: fever or chills Ears, nose, mouth, and throat Denies: throat pain or nasal congestion Cardiovascular Denies: chest pain Respiratory Reports: shortness of breath; Denies: cough Gastrointestinal Denies: nausea or vomiting Musculoskeletal Denies: back pain Integumentary/Breast Denies: rash Neurological Denies: headache PFSH PFSH Social History Smoking status: Former smoker Exam Narrative Exam Narrative: Gen.: Awake, alert, in no distress Head: Normocephalic, atraumatic ENT: Moist mucous membranes Respiratory: No respiratory distress, lungs clear bilaterally Cardio: Regular rate and rhythm Gastrointestinal: Abdomen is soft, nondistended and nontender to palpation Extremities: Moves extremities equally Psych: Normal mood and affect Neuro: No focal neuro deficit Skin: Warm, dry, intact Constitutional Vital Signs, click to edit/add: Last Vital Signs Temp 98.1 F 03/18/23 14:59 Pulse 65 03/18/23 16:51 Resp 17 03/18/23 16:51 BP 139/85 03/18/23 16:30 Pulse Ox 99 03/18/23 16:51 O2 Del Method Room Air 03/18/23 14:59 Course Vital Signs Vital signs: Vital Signs Temperature 98.1 F 03/18/23 14:59 Pulse Rate 75 03/18/23 14:59 Respiratory Rate 18 03/18/23 14:59 Blood Pressure 137/83 03/18/23 14:59 Pulse Oximetry 100 03/18/23 14:59 Oxygen Delivery Method Room Air 03/18/23 14:59 Temperature 98.1 F 03/18/23 14:59 Pulse Rate 65 03/18/23 16:51 Respiratory Rate 17 03/18/23 16:51 Blood Pressure 139/85 03/18/23 16:30 Pulse Oximetry 99 03/18/23 16:51 Oxygen Delivery Method Room Air 03/18/23 14:59 Medical Decision Making [facility] Narrative Medical decision making narrative: Patient with normal vital signs, stable oxygenation, normal chest x-ray, EKG and labs including D-dimer and troponin. He is discharged home with referrals for cardiology and pulmonology to return to the ER if symptoms change or worsen. Medical Records Medical records reviewed: Yes I reviewed the patient's medical records Lab Data Lab results reviewed: Yes I reviewed the patient's lab results Labs: Lab Results 03/18/23 Range/Units 15:45 WBC 5.4 (4.0-11.0) 10^3/uL RBC 4.89 (4.70-6.10) 10^6/uL Hgb 14.6 (14.0-18.0) g/dL Hct 44.1 (42.0-54.0) % MCV 90.2 (80.0-94.0) fL MCH 29.9 (25.9-34.0) pg MCHC 33.1 (29.9-35.2) g/dL RDW 13.0 (11.0-15.0) % Plt Count 200 (150-450) 10^3/uL MPV 8.9 L (9.5-13.5) fL Neut % (Auto) 60.1 (43.0-75.0) % Lymph % (Auto) 28.4 (20.5-60.0) % [place] % (Auto) 7.0 (1.7-12.0) % Eos % (Auto) 4.1 (0.9-7.0) % Baso % (Auto) 0.2 (0.2-2.0) % Neut # (Auto) 3.3 (1.4-6.5) 10^3/uL Lymph # (Auto) 1.5 (1.2-3.8) 10^3/uL [place] # (Auto) 0.4 (0.3-0.8) 10^3/uL Eos # (Auto) 0.2 (0.0-0.7) 10^3/uL Baso # (Auto) 0.0 (0.0-0.1) 10^3/uL Abs Immat Gran (auto) 0.01 (0.00-0.03) 10^3/uL Imm/Tot Granulo (auto) 0.2 (0.0-0.5) % D-Dimer <0.19 (<=0.59) mg/L FEU Sodium 142 (136-145) mmol/L Potassium 4.0 (3.5-5.1) mmol/L Chloride 107 (98-107) mmol/L Carbon Dioxide 29.2 (21.0-32.0) mmol/L Anion Gap 9.8 BUN 11.0 (7.0-18.0) mg/dL Creatinine 0.88 (0.70-1.30) mg/dL Est GFR ( Amer) >60 (>=60) Est GFR (Non-Af Amer) >60 (>=60) BUN/Creatinine Ratio 12.5 Glucose 97 (74-106) mg/dL Calcium 9.1 (8.5-10.1) mg/dL Total Bilirubin 0.3 (0.2-1.0) mg/dL AST 13 L (15-37) U/L ALT 24 (16-63) U/L Alkaline Phosphatase 72 (46-116) U/L Troponin I High Sens 7.1 (4.0-76.1) pg/mL Total Protein 7.6 (6.4-8.2) g/dL Albumin 3.9 (3.4-5.0) g/dL Globulin 3.7 g/dL Albumin/Globulin Ratio 1.1 Imaging Data Chest x-ray: Attestation: I have reviewed the pertinent imaging results. Radiologist's impression: ITS Impressions Chest X-Ray 03/18/23 16:21 IMPRESSION: Normal radiograph of the chest. Electronically authenticated by: ULI WALLS Date: 03/18/2023 16:46 ECG Data Attestation: I personally reviewed and interpreted this ECG as follows: (Sinus rhythm at a rate of 71, no acute ST elevation or ectopy. EKG reviewed by attending physician) Discharge Plan Discharge Chief Complaint: Shortness of Breath/Dyspnea Clinical Impression: Acute dyspnea Patient Disposition: Home, Self-Care Time of Disposition Decision: 16:51 Condition: Good Prescriptions / Home Meds: No Action buspirone 10 mg tablet 10 mg PO DAILY thyroid (pork) [[employer] Thyroid] 30 mg tablet 30 mg PO DAILY clindamycin HCl 150 mg capsule 300 mg PO Q6H 7 Days Qty: 56 0RF naproxen sodium 550 mg tablet 550 mg PO BID PRN (Reason: pain) Qty: 10 0RF Instructions: Dyspnea (ED) Stand Alone Forms: Portal Instructions Referrals: ALEJANDRA POLLOCK DO [Primary Care Provider] - 1 week Parker Cruz DO [Physician] - 1 week Faisal Laureano MD [Physician] - 1 week Discharge Date/Time: 03/18/23 17:03
[2023-03-18 15:52] LABS: Basophils Percent Auto 0.2 % (0.2-2.0); Eosinophils Absolute Auto 0.2 10^3/uL (0.0-0.7); Eosinophils Percent Auto 4.1 % (0.9-7.0); Hematocrit 44.1 % (42.0-54.0); Hemoglobin 14.6 g/dL (14.0-18.0); Immature Granulocytes Abs Auto 0.01 10^3/uL (0.00-0.03); Immature Granulocytes Pct Auto 0.2 % (0.0-0.5); Lymphocytes Absolute Auto 1.5 10^3/uL (1.2-3.8); Lymphocytes Percent Auto 28.4 % (20.5-60.0); Mean Corpuscular HGB Conc 33.1 g/dL (29.9-35.2); Mean Corpuscular Hemoglobin 29.9 pg (25.9-34.0); Mean Corpuscular Volume 90.2 fL (80.0-94.0); Mean Platelet Volume 8.9 fL (9.5-13.5); Monocytes Absolute Auto 0.4 10^3/uL (0.3-0.8); Neutrophils Absolute Auto 3.3 10^3/uL (1.4-6.5); Neutrophils Percent Auto 60.1 % (43.0-75.0); Platelet Count 200 10^3/uL (150-450); Red Blood Count 4.89 10^6/uL (4.70-6.10); White Blood Count 5.4 10^3/uL (4.0-11.0)
[2023-03-18 16:20] LABS: D Dimer <0.19 mg/L FEU (<=0.59)
[2023-03-18 16:21] LABS: Alanine Aminotransferase 24 U/L (16-63); Albumin Globulin Ratio 1.1; Albumin Level 3.9 g/dL (3.4-5.0); Alkaline Phosphatase 72 U/L (46-116); Anion Gap 9.8; Aspartate Amino Transferase 13 U/L (15-37); BUN Creatinine Ratio 12.5; Bilirubin Total 0.3 mg/dL (0.2-1.0); Calcium 9.1 mg/dL (8.5-10.1); Carbon Dioxide 29.2 mmol/L (21.0-32.0); Chloride 107 mmol/L (98-107); Estimated GFR (African America >60 (>=60); Estimated GFR (Non-African Ame >60 (>=60); Globulin 3.7 g/dL; Glucose 97 mg/dL (74-106); Sodium 142 mmol/L (136-145); Total Protein 7.6 g/dL (6.4-8.2); Troponin I High Sensitivity 7.1 pg/mL (4.0-76.1)
--- NOTE | 2023-03-18 16:21 | XR_ITS ---
The [address] [address] Patient Name: MARY OWENS MRN: [id number] date: 1995 Sex: M Assigned Patient Location: ER Current Patient Location: ER Accession/Order Number: [id number] Exam Date: 03/18/2023 16:30 Report Date: 03/18/2023 16:46 At the request of: GEOVANNA WADDELL Procedure: XR chest 1V EXAMINATION: XR chest 1V 03/18/2023 1:43 PM PST HISTORY: Shortness of breath TECHNIQUE: Single frontal view of the chest acquired. COMPARISONS: None. FINDINGS: Lines/tubes/other: None. Heart and mediastinum: The heart and the mediastinum are within normal limits for technique. Bones: No acute osseous abnormality. Lungs: The lungs are clear. There is no evidence of pneumonia or pulmonary edema. Pleura: There is no significant pleural effusion or pneumothorax. Other: None. XR/XR chest 1V IMPRESSION: Normal radiograph of the chest. Electronically authenticated by: ULI WALLS Date: 03/18/2023 16:46
== END 2023-03-18 17:03 | disposition home or self-care (01) ==
PROVIDERS: Physician Assistant; Emergency Provider Emergency Medicine; PCP Family Medicine
DX: R06.00 Dyspnea, unspecified (principal); Z79.899 Other long term (current) drug therapy; Z87.891 Personal history of nicotine dependence
CPT/HCPCS: 36415; 71045; 80053; 84484; 85025; 85378; 93005; 99284

== ENCOUNTER 2023-03-25 09:03 | Outpatient (OUT) | payer SELFPAY ==
--- NOTE | 2023-03-25 09:00 | RT_ITS ---
The 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 Findings were considered accurate and reproducible. Both pre- and post-bronchodilator values utilized for spirometry. Spirometry (based on pre-bronchodilator values): -FEV1/FVC: Normal @ 77% -FEV1: Low normal @ 82% -FVC: Normal @ 88% -[id number]%: Reduced @ 66% -There is a partial bronchodilator response in FEV1 which meets >200mL increase but <12% change. Lung volumes by plethysmography (based on pre-bronchodilator values): -RV: Increased @ 122% -TLC: Normal @ 96% -Airway resistance: Increased -Airway conductance: Decreased Diffusion capacity: -DLCO: Normal @ 110% when corrected for Hb 14.6g/dL Flow-volume loop: -Mild obstructive pattern Impressions: -Normal spirometry. There is a partial bronchodilator response. An elevated RV suggests air trapping. The diffusion capacity is normal. Though technically not diagnostic, subtle findings suggest an underlying obstructive process such as asthma. Clinical correlation required. Electronically Signed On 03-26-2023 7:49:13 EST by Parker Cruz
--- OUTSIDE RECORDS SUMMARY | 2023-03-25 09:07 | XMS_ITS | CCD ---
Author Name Unknown Address [address] [place] [id number] Organization [facility] Care Team Providers Care Gift Officer Name Role Phone PHYSICIAN, DEFAULT Unavailable Unavailable [...] POLLOCK, DR ALEJANDRA Cummins Primary Care Unavailable Douglas MORA Attending Unavailable Allergies Allergy Classification Reported Allergen(s) Allergy Type Date of Onset Reaction(s) Facility (1 source) No Known Medication Allergies; Translations: [No Known Medication Allergies] Propensity to adverse reactions (disorder) [facility] Repository Problems Active Problems Problem Classification Problem Date [...] Test Name Value Interpretation Reference Range Facility [facility] 03-20-2023 Consent [id number] 1.00TIFF Normal [facility] Registrationon 03-20-2023 Registration [id number]# 1.00TIFF Normal [facility] ECHOCARDIO M/2D COMPLETEon 1 03-18-2021 ECHOCARDIO M/2D COMPLETE Patient: MARY OWENS Exam Date: 01/16/2022 : 1995 Gender:M Ordering : DR ALEJANDRA POLLOCK D.O. Admission #: [id number] Family : Order #: [id number] CLICK HERE TO VIEW EXAM ECHOCARDIOGRAM REPORT [...] on 01/16/2022 at 15:32 Normal [facility] FREE T3on 01-16-2022 FREE T3 3.14 pg/mlL Normal 2.18-3.98 [facility] Comment on above: Performed By: #### F T3, CMP, TSH #### [facility] [address] [place] [address] Dr. Patsy Funk FREE T4on 01-16-2022 Free T4 [Mass/Vol] 0.79 ng/dL Normal 0.76-1.46 [facility] Comment on above: Performed By: #### F T4 #### [facility] [address] [place] [address] Dr. Patsy Funk PROF 14(COMP METB)on 022 Albumin [Mass/Vol] 4.2 g/dL Normal 3.4-5.0 [facility] Comment on above: Performed By: #### F T3, CMP, TSH #### [facility] [address] [place] [address] Dr. Patsy Funk Albumin/Globulin [Mass ratio] 1.2 {ratio} Normal [facility] Comment on above: Performed By: #### F T3, CMP, TSH #### [facility] [address] [place] [address] Dr. Patsy Funk ALP [Catalytic activity/Vol] 70 U/L Normal 46-116 [facility] Comment on above: Performed By: #### F T3, CMP, TSH #### [facility] [address] [place] [address] Dr. Patsy Funk ALT [Catalytic activity/Vol] 22 U/L Normal 16-63 [facility] Comment on above: Performed By: #### F T3, CMP, TSH #### [facility] [address] [place] [address] Dr. Patsy Funk Anion gap [Moles/Vol] 12.2 mmol/L Normal [facility] Comment on above: Performed By: #### F T3, CMP, TSH #### [facility] [address] [place] [address] Dr. Patsy Funk AST [Catalytic activity/Vol] 18 U/L Normal 15-37 [facility] Comment on above: Performed By: #### F T3, CMP, TSH #### [facility] [address] [address] [address] Patsy Funk Bilirubin [Mass/Vol] 0.7 mg/dL Normal 0.2-1.0 [facility] Comment on above: Performed By: #### F T3, CMP, TSH #### [facility] [address] [address] [address] Patsy Funk Calcium [Mass/Vol] 9.3 mg/dL Normal 8.5-10.1 [facility] Comment on above: Performed By: #### F T3, CMP, TSH #### [facility] [address] [place] [address] Dr. Patsy Funk Chloride [Moles/Vol] 104 mmol/L Normal 98-107 [facility] Comment on above: Performed By: #### F T3, CMP, TSH #### [facility] [address] [place] [address] Dr. Patsy Funk CO2 [Moles/Vol] 28.0 mmol/L Normal 21.0-32.0 [facility] Comment on above: Performed By: #### F T3, CMP, TSH #### [facility] [address] [place] [address] Dr. Patsy Funk Creatinine [Mass/Vol] 0.78 mg/dL Normal 0.70-1.30 [facility] Comment on above: Performed By: #### F T3, CMP, TSH #### [facility] [address] [place] [address] Dr. Patsy Funk EGFR-AF PORTUGUESE >60 Normal >=60 [facility] Comment on above: Performed By: #### F T3, CMP, TSH #### [facility] [address] [place] [address] Dr. Patsy Funk EGFR-NON AF PORTUGUESE >60 Normal >=60 [facility] Comment on above: Performed By: #### F T3, CMP, TSH #### [facility] [address] [address] [address] Patsy Funk Globulin (S) [Mass/Vol] 3.5 g/dL Normal [facility] Comment on above: Performed By: #### F T3, CMP, TSH #### [facility] [address] [address] [address] Patsy Funk Glucose [Mass/Vol] 87 mg/dL Normal 74-106 [facility] Comment on above: Performed By: #### F T3, CMP, TSH #### [facility] [address] [address] [address] Patsy Funk Potassium [Moles/Vol] 4.2 mmol/L Normal 3.5-5.1 [facility] Comment on above: Performed By: #### F T3, CMP, TSH #### [facility] [address] [address] [address] Patsy Funk Protein [Mass/Vol] 7.7 g/dL Normal 6.4-8.2 [facility] Comment on above: Performed By: #### F T3, CMP, TSH #### [facility] [address] [address] [address] Patsy Funk Sodium [Moles/Vol] 140 mmol/L Normal 136-145 [facility] Comment on above: Performed By: #### F T3, CMP, TSH #### [facility] [address] [address] [address] Patsy Funk Urea nitrogen [Mass/Vol] 13.0 mg/dL Normal 7.0-18.0 [facility] Comment on above: Performed By: #### F T3, CMP, TSH #### [facility] [address] [address] [address] Patsy Funk Urea nitrogen/Creatinine [Mass ratio] 16.7 mg/mg Normal [facility] Comment on above: Performed By: #### F T3, CMP, TSH #### [facility] [address] [address] [address] Patsy Funk TSHon 01-16-2022 TSH 0.690 uIU/mL Normal 0.358-3.740 [facility] Comment on above: Performed By: #### F T3, CMP, TSH #### [facility] [address] [address] [address] Patsy Funk FREE T3on 03-21-2021 FREE T3 2.98 pg/mlL Normal 2.77-5.27 [facility] Comment on above: Performed By: #### F T3, TSH #### [facility] [address] [address] [address] Patsy Funk FREE T4on 03-21-2021 Free T4 [Mass/Vol] 0.79 ng/dL Normal 0.78-2.19 [facility] Comment on above: Performed By: #### F T4 #### [facility] [address] [address] [address] Patsy Funk TSHon 03-21-2021 TSH 0.673 uIU/mL Normal 0.470-4.680 [facility] Comment on above: Performed By: #### F T3, TSH #### [facility] [address] [address] [address] Patsy Funk TSH RANGE SEE BELOW Normal [facility] Comment on above: Result Comment: <0.3 4 UIU/ml HYPERTHYROID 0.34-5.60 UIU/ml EUTHYROID >5.60 UIU/ml HYPOTHYROID Performed By: #### F T3, TSH #### [facility] [address] [place] [address] Dr. Patsy Funk Semen Analysis, Fertilityon 01-08-2021 Abnormal Sperm Morphology 42 % [facility] Comment on above: Result Comment: WHO Standards used to classify morphology. Performed By: #### S EMCOMP #### [facility] [address] [place] [address] [place] Abstinence Period, Semen A WEEK [facility] Comment on above: Performed By: #### S EMCOMP #### [facility] [address] Container Type, Semen Cup, Sterile [facility] Comment on above: Performed By: #### S EMCOMP #### [facility] [address] [place] [address] Immature Sperm 1 % Normal [facility] Comment on above: Performed By: #### S EMCOMP #### [facility] [address] [place] [address] Immotile Sperm 25 % Normal [facility] Comment on above: Performed By: #### S EMCOMP #### [facility] [address] [place] [address] Non-Progression Sperm Motili 1 % Normal [facility] Comment on above: Performed By: #### S EMCOMP #### [facility] [address] [place] [address] Normal Sperm Morphology 57 % Normal >/=30 [facility] Comment on above: Result Comment: WHO Standards used to classify morphology. Performed By: #### S EMCOMP #### [address] Rapid Progression Sperm Motili 72 % [facility] Comment on above: Result Comment: Refe rence: Total of Rapid and Slow Progression is >/= 50% or Rapid Progression only is >/= 25% Decreased motility percentage may be the result of non-viable or non-motile sperm. Performed By: #### S EMCOMP #### [address] Round Cell Concent, Semen 4 10*6/mL High <1 [facility] Comment on above: Result Comment: (Pot entially WBC's) Performed By: #### S EMCOMP #### [address] Semen Collection Method Masturbation [facility] Comment on above: Performed By: #### S EMCOMP #### [facility] [address] [place] [address] Semen Liquefaction Liquefied @ 60 min. [facility] Comment on above: Result Comment: PERF ORMED BY: [place] [address] PATHOLOGIST PRODUCT PICKER LESTER ROSSI M.D. Performed By: #### S EMCOMP #### [address] Semen Viscosity Normal Normal Normal [facility] Comment on above: Performed By: #### S EMCOMP #### [address] Semen Volume 3.5 mL Normal 2.0-5.0 [facility] Comment on above: Performed By: #### S EMCOMP #### [facility] [address] [place] [address] Slow Progression Sperm Motili 2 % Normal [facility] Comment on above: Performed By: #### S EMCOMP #### [facility] [address] [place] [address] Sperm Concentration 46 10*6/mL Normal >=20 [facility] Comment on above: Performed By: #### S EMCOMP #### [address] Follicle Stimulating Hormone on 12-20-2020 Follicle Stimulating Hormone 6.5 m[iU]/mL Normal [facility] Comment on above: Result Comment: FEMA LE NORMALS (PREMENOPAUSE) MID-FOLLICULAR PHASE: 3.9-8.8 mIU/mL MID-CYCLE PEAK: 4.5-22.5 mIU/mL MID-LUTEAL PHASE: 1.8-5.1 mIU/mL FEMALE NORMALS (POSTMENOPAUSE): 16.7-113.6 mIU/mL MALE NORMALS: 1.3-19.3 mIU/mL Performed By: #### T EST, PRL, FSH #### [address] #### LH #### [facility] , Luteinizing Hormoneon 2020 Luteinizing Hormone 7.7 m[iU]/mL Normal 1.7-8.6 [facility] Comment on above: Result Comment: Perf ormed at: - [facility] [address] [id number] Test Lead: Carrington Gayle PhD, Phone: [phone] PERFORMED BY: [place] [address] PATHOLOGIST PRODUCT PICKER LESTER ROSSI M.D. Performed By: #### T EST, PRL, FSH #### [address] #### LH #### [facility] , Prolactinon 12-20-2020 Prolactin 7.96 ng/mL Normal 2.64-13.13 [facility] Comment on above: Result Comment: PERF ORMED BY: [place] [address] PATHOLOGIST PRODUCT PICKER LESTER ROSSI M.D. Performed By: #### T EST, PRL, FSH #### [address] #### LH #### [facility] , Semen Analysis, Fertilityon 12-20-2020 Abnormal Sperm Morphology 44 % Normal [facility] Comment on above: Result Comment: WHO Standards used to classify morphology. Performed By: #### S EMCOMP #### [address] Abstinence Period, Semen 48 HOURS Normal [facility] Comment on above: Result Comment: ADOLFO LE Performed By: #### S EMCOMP #### [address] Container Type, Semen Other Normal [facility] Comment on above: Performed By: #### S EMCOMP #### [facility] [address] [place] [address] Immature Sperm 8 % Normal [facility] Comment on above: Performed By: #### S EMCOMP #### [facility] [address] [place] [address] Immotile Sperm 34 % Normal [facility] Comment on above: Performed By: #### S EMCOMP #### [facility] [address] [place] [address] Non-Progression Sperm Motili 3 % Normal [facility] Comment on above: Performed By: #### S EMCOMP #### [facility] [address] [place] [address] Normal Sperm Morphology 48 % Normal >/=30 [facility] Comment on above: Result Comment: WHO Standards used to classify morphology. Performed By: #### S EMCOMP #### [facility] [address] [place] [address] Rapid Progression Sperm Motili 60 % Normal [facility] Comment on above: Result Comment: Refe rence: Total of Rapid and Slow Progression is >/= 50% or Rapid Progression only is >/= 25% Decreased motility percentage may be the result of non-viable or non-motile sperm. Performed By: #### S EMCOMP #### [address] Round Cell Concent, Semen 7 10*6/mL High <1 [facility] Comment on above: Result Comment: (Pot entially WBC's) Performed By: #### S EMCOMP #### [facility] [address] [place] [address] Semen Collection Method Masturbation [facility] Comment on above: Performed By: #### S EMCOMP #### [facility] [address] [place] [address] Semen Liquefaction Liquefied @ 180 min. [facility] Comment on above: Result Comment: PERF ORMED BY: [place] [address] PATHOLOGIST PRODUCT PICKER LESTER ROSSI M.D. Performed By: #### S EMCOMP #### [facility] [address] [place] [address] Semen Viscosity High Critically abnormal Normal [facility] Comment on above: Performed By: #### S EMCOMP #### [facility] [address] [place] [address] Semen Volume 3.5 mL Normal 2.0-5.0 [facility] Comment on above: Performed By: #### S EMCOMP #### [facility] [address] [place] [address] Slow Progression Sperm Motili 3 % Normal [facility] Comment on above: Performed By: #### S EMCOMP #### [facility] [address] Sperm Concentration 39 10*6/mL Normal >=20 [facility] Comment on above: Performed By: #### S EMCOMP #### [facility] [address] Testosteroneon 12-20-2020 Testosterone 4.56 ng/mL Normal 1.75-7.81 [facility] Comment on above: Result Comment: PERF ORMED BY: [place] [address] PATHOLOGIST PRODUCT PICKER LESTER ROSSI M.D. Performed By: #### T EST, PRL, FSH #### [facility] [address] [place] [address] #### LH #### [facility] , Encounters Encounter Date Encounter Type Care Provider Facility Start: 03-20-2023 End: 03-21-2023 ambulatory Douglas MORGAN Facility:[facility] Start: 01-16-2022 End: 01-17-[address] ALEJANDRA POLLOCK Facility:[facility] Start: 10-28-2021 End: 10-28-[address] POPPY PARK Facility:[facility] Start: 06-02-2021 End: 06-02-[address] POPPY PARK Facility:[facility] Start: 03-20-2021 End: 03-21-[address] ALEJANDRA POLLOCK Facility:[facility] Start: 01-14-2017 End: 01-15-2017 Ambulatory DEFAULT PHYSICIAN Facility:[facility] Start: 01-03-2017 End: 01-04-2017 Ambulatory DEFAULT PHYSICIAN Facility:[facility] Payers Date Payer Category Payer Unknown [id number] 2.16.84 [id number] 1995 Unknown [id number] 2.16.84 [id number] 1995 Unknown [id number] 2.16.84 [id number] 1995 Unknown [id number] 2.16.84 [id number] 1960 Self-pay [id number] 1960 Unknown [id number] Unknown Summary Purpose Family History No Family [...] section and content) DATE CREATED AUTHOR 08/12/2017 [facility] DATE CREATED AUTHOR AUTHOR'S ORGANIZ ATION 03/13/2021 [facility] DATE CREATED AUTHOR AUTHOR'S ORGANIZ ATION 01/19/2022 [facility] DATE CREATED AUTHOR AUTHOR'S ORGANIZ ATION 03/21/2023 [facility] FOR RECORDS PERTAINING TO PATIENTS WHO ARE [...] BE BASED ON THE PRIMARY CLINICAL RECORDS. [employer] [facility] provides no warranty or guarantee of the accuracy or completeness of information in this document.
[2023-03-25 09:55] VITALS: PULSE 75; RESP 20; O2SAT 98
[2023-03-25] MEDS: ALBUTEROL SULFATE 2.5 MG/3 ML VIAL NEB IH (09:55)
== END 2023-03-25 09:04 | disposition home or self-care (01) ==
LOC: CARD 09:03
PROVIDERS: PCP Family Medicine; Visit Provider Family Medicine
DX: R06.02 Shortness of breath (principal)
CPT/HCPCS: 94060; 94726; 94729

== ENCOUNTER 2023-06-22 22:10 | Emergency (ER) | payer SELFPAY ==
[2023-06-22] VITALS (10 sets, daily range): BP systolic 125–166; BP diastolic 82–101; PULSE 60–86; TEMP 36.4; O2SAT 98; BMI 24.4
--- OUTSIDE RECORDS SUMMARY | 2023-06-22 22:25 | XMS_ITS | CCD ---
Author Organization [facility] Care Team Providers Care Cfo Name Role Phone PHYSICIAN, DEFAULT Unavailable Unavailable [...] POLLOCK, DR ALEJANDRA Cummins Primary Care Unavailable MORGANDouglas Attending Unavailable Allergies Allergy Classification Reported Allergen(s) Allergy Type Date of Onset Reaction(s) Facility (1 source) No Known Medication Allergies; Translations: [No Known Medication Allergies] Propensity to adverse reactions (disorder) [facility] Repository Problems Active Problems Problem Classification Problem [...] Interpretation Reference Range Facility [facility] 03-20-2023 Consent [id number]# 1.00TIFF Normal [facility] Registrationon 03-20-2023 Registration [id number]# 1.00TIFF Normal [facility] ECHOCARDIO M/2D COMPLETEon 1 03-18-2021 ECHOCARDIO M/2D COMPLETE Patient: MARY OWENS Exam Date: 01/16/2022 : 1995 Gender:M Ordering : DR ALEJANDRA POLLOCK D.O. Admission #: [id number] Family : Order #: [id number] CLICK HERE TO VIEW EXAM ECHOCARDIOGRAM REPORT [...] Hanson M.D. on 01/16/2022 at 15:32 Normal [facility] FREE T3on 01-16-2022 FREE T3 3.14 pg/mlL Normal 2.18-3.98 [facility] Comment on above: Performed By: #### F T3, CMP, TSH #### [facility] [address] [address] [address] Patsy Funk FREE T4on 01-16-2022 Free T4 [Mass/Vol] 0.79 ng/dL Normal 0.76-1.46 [facility] Comment on above: Performed By: #### F T4 #### [facility] [address] [address] [address] Patsy Funk PROF 14(COMP METB)on 022 Albumin [Mass/Vol] 4.2 g/dL Normal 3.4-5.0 [facility] Comment on above: Performed By: #### F T3, CMP, TSH #### [facility] [address] [place] [address] Dr. Patsy Funk Albumin/Globulin [Mass ratio] 1.2 {ratio} Normal [facility] Comment on above: Performed By: #### F T3, CMP, TSH #### [facility] [address] [place] [address] Dr. Patsy Funk ALP [Catalytic activity/Vol] 70 U/L Normal 46-116 [facility] Comment on above: Performed By: #### F T3, CMP, TSH #### [facility] [address] [address] [address] Patsy Funk ALT [Catalytic activity/Vol] 22 U/L Normal 16-63 [facility] Comment on above: Performed By: #### F T3, CMP, TSH #### [facility] [address] [address] [address] Patsy Funk Anion gap [Moles/Vol] 12.2 mmol/L Normal [facility] Comment on above: Performed By: #### F T3, CMP, TSH #### [facility] [address] [place] [address] Dr. Patsy Funk AST [Catalytic activity/Vol] 18 U/L Normal 15-37 [facility] Comment on above: Performed By: #### F T3, CMP, TSH #### [facility] [address] [address] [address] Patsy Funk Bilirubin [Mass/Vol] 0.7 mg/dL Normal 0.2-1.0 [facility] Comment on above: Performed By: #### F T3, CMP, TSH #### [facility] [address] [address] [address] Patsy Funk Calcium [Mass/Vol] 9.3 mg/dL Normal 8.5-10.1 [facility] Comment on above: Performed By: #### F T3, CMP, TSH #### [facility] [address] [place] [address] Dr. Patsy Funk Chloride [Moles/Vol] 104 mmol/L Normal 98-107 [facility] Comment on above: Performed By: #### F T3, CMP, TSH #### [facility] [address] [place] [address] Dr. Patsy Funk CO2 [Moles/Vol] 28.0 mmol/L Normal 21.0-32.0 [facility] Comment on above: Performed By: #### F T3, CMP, TSH #### [facility] [address] [place] [address] Dr. Patsy Funk Creatinine [Mass/Vol] 0.78 mg/dL Normal 0.70-1.30 [facility] Comment on above: Performed By: #### F T3, CMP, TSH #### [facility] [address] [place] [address] Dr. Patsy Funk EGFR-AF TOGOLESE >60 Normal >=60 [facility] Comment on above: Performed By: #### F T3, CMP, TSH #### [facility] [address] [place] [address] Dr. Patsy Funk EGFR-NON AF TOGOLESE >60 Normal >=60 [facility] Comment on above: Performed By: #### F T3, CMP, TSH #### [facility] [address] [place] [address] Dr. Patsy Funk Globulin (S) [Mass/Vol] 3.5 g/dL Normal [facility] Comment on above: Performed By: #### F T3, CMP, TSH #### [facility] [address] [place] [address] Dr. Patsy Funk Glucose [Mass/Vol] 87 mg/dL Normal 74-106 [facility] Comment on above: Performed By: #### F T3, CMP, TSH #### [facility] [address] [place] [address] Dr. Patsy Funk Potassium [Moles/Vol] 4.2 mmol/L Normal 3.5-5.1 [facility] Comment on above: Performed By: #### F T3, CMP, TSH #### [facility] [address] [place] [address] Dr. Patsy Funk Protein [Mass/Vol] 7.7 g/dL Normal 6.4-8.2 [facility] Comment on above: Performed By: #### F T3, CMP, TSH #### [facility] [address] [place] [address] Dr. Patsy Funk Sodium [Moles/Vol] 140 mmol/L Normal 136-145 [facility] Comment on above: Performed By: #### F T3, CMP, TSH #### [facility] [address] [place] [address] Dr. Patsy Funk Urea nitrogen [Mass/Vol] 13.0 mg/dL Normal 7.0-18.0 [facility] Comment on above: Performed By: #### F T3, CMP, TSH #### [facility] [address] [place] [address] Dr. Patsy Funk Urea nitrogen/Creatinine [Mass ratio] 16.7 mg/mg Normal [facility] Comment on above: Performed By: #### F T3, CMP, TSH #### [facility] [address] [place] [address] Dr. Patsy Funk TSHon 01-16-2022 TSH 0.690 uIU/mL Normal 0.358-3.[address] [facility] Comment on above: Performed By: #### F T3, CMP, TSH #### [facility] [address] [address] [address] Patsy Funk FREE T3on 03-21-2021 FREE T3 2.98 pg/mlL Normal 2.77-5.27 [facility] Comment on above: Performed By: #### F T3, TSH #### [facility] [address] [address] [address] Patsy Funk FREE T4on 03-21-2021 Free T4 [Mass/Vol] 0.79 ng/dL Normal 0.78-2.19 [facility] Comment on above: Performed By: #### F T4 #### [facility] [address] [address] [address] Patsy Funk TSHon 03-21-2021 TSH 0.673 uIU/mL Normal 0.470-4.680 [facility] Comment on above: Performed By: #### F T3, TSH #### [facility] [address] [place] [address] Dr. Patsy Funk TSH RANGE SEE BELOW Normal [facility] Comment on above: Result Comment: <0.3 4 UIU/ml HYPERTHYROID 0.34-5.60 UIU/ml EUTHYROID >5.60 UIU/ml HYPOTHYROID Performed By: #### F T3, TSH #### [facility] [address] [place] [address] Dr. Patsy Funk Semen Analysis, Fertilityon 01-08-2021 Abnormal Sperm Morphology 42 % [facility] Comment on above: Result Comment: WHO Standards used to classify morphology. Performed By: #### S EMCOMP #### [facility] [address] [place] [address] Abstinence Period, Semen A WEEK [facility] Comment on above: Performed By: #### S EMCOMP #### [facility] [address] [place] [address] [place] Container Type, Semen Cup, Sterile [facility] Comment on above: Performed By: #### S EMCOMP #### [facility] [address] [place] [address] Immature Sperm 1 % [facility] Comment on above: Performed By: #### S EMCOMP #### [facility] [address] [place] [address] [place] Immotile Sperm 25 % Normal [facility] Comment on above: Performed By: #### S EMCOMP #### [facility] [address] [place] [address] Non-Progression Sperm Motili 1 % Normal [facility] Comment on above: Performed By: #### S EMCOMP #### [facility] [address] [place] [address] Normal Sperm Morphology 57 % Normal >/=30 [facility] Comment on above: Result Comment: WHO Standards used to classify morphology. Performed By: #### S EMCOMP #### [address] Rapid Progression Sperm Motili 72 % Normal [facility] Comment on above: Result Comment: Refe rence: Total of Rapid and Slow Progression is >/= 50% or Rapid Progression only is >/= 25% Decreased motility percentage may be the result of non-viable or non-motile sperm. Performed By: #### S EMCOMP #### [address] Round Cell Concent, Semen 4 10*6/mL High <1 [facility] Comment on above: Result Comment: (Pot entially WBC's) Performed By: #### S EMCOMP #### [facility] [address] [place] [address] Semen Collection Method Masturbation Normal [facility] Comment on above: Performed By: #### S EMCOMP #### [facility] [address] [place] [address] Semen Liquefaction Liquefied @ 60 min. [facility] Comment on above: Result Comment: PERF ORMED BY: [place] [address] PATHOLOGIST GLOBAL POSITION SYSTEM TECHNICIAN LESTER ROSSI M.D. Performed By: #### S EMCOMP #### [address] Semen Viscosity Normal Normal Normal [facility] Comment on above: Performed By: #### S EMCOMP #### [facility] [address] [place] [address] Semen Volume 3.5 mL Normal 2.0-5.0 [facility] Comment on above: Performed By: #### S EMCOMP #### [facility] [address] Slow Progression Sperm Motili 2 % Normal [facility] Comment on above: Performed By: #### S EMCOMP #### [facility] [address] [place] [address] Sperm Concentration 46 10*6/mL Normal >=20 [facility] Comment on above: Performed By: #### S EMCOMP #### [facility] [address] [place] [address] Follicle Stimulating Hormone on 12-20-2020 Follicle Stimulating Hormone 6.5 m[iU]/mL Normal [facility] Comment on above: Result Comment: FEMA LE NORMALS (PREMENOPAUSE) MID-FOLLICULAR PHASE: 3.9-8.8 mIU/mL MID-CYCLE PEAK: 4.5-22.5 mIU/mL MID-LUTEAL PHASE: 1.8-5.1 mIU/mL FEMALE NORMALS (POSTMENOPAUSE): 16.7-113.6 mIU/mL MALE NORMALS: 1.3-19.3 mIU/mL Performed By: #### T EST, PRL, FSH #### [facility] [address] [place] [address] #### LH #### [facility] , Luteinizing Hormoneon 2020 Luteinizing Hormone 7.7 m[iU]/mL Normal 1.7-8.6 [facility] Comment on above: Result Comment: Perf ormed at: CB - [facility] [address] [id number] Collections Technician: Carrington Gayle PhD, Phone: [phone] PERFORMED BY: [place] [address] PATHOLOGIST GLOBAL POSITION SYSTEM TECHNICIAN LESTER ROSSI M.D. Performed By: #### T EST, PRL, FSH #### [facility] [address] [place] [address] [place] #### LH #### [facility] , Prolactinon 12-20-2020 Prolactin 7.96 ng/mL Normal 2.64-13.13 [facility] Comment on above: Result Comment: PERF ORMED BY: [place] [address] PATHOLOGIST GLOBAL POSITION SYSTEM TECHNICIAN LESTER ROSSI M.D. Performed By: #### T EST, PRL, FSH #### [address] #### LH #### [facility] , Semen Analysis, Fertilityon 12-20-2020 Abnormal Sperm Morphology 44 % Normal [facility] Comment on above: Result Comment: WHO Standards used to classify morphology. Performed By: #### S EMCOMP #### [facility] [address] [place] [address] Abstinence Period, Semen 48 HOURS Normal [facility] Comment on above: Result Comment: ADOLFO LE Performed By: #### S EMCOMP #### [address] Container Type, Semen Other Normal [facility] Comment on above: Performed By: #### S EMCOMP #### [facility] [address] [place] [address] Immature Sperm 8 % Normal [facility] Comment on above: Performed By: #### S EMCOMP #### [facility] [address] [place] [address] Immotile Sperm 34 % Normal [facility] Comment on above: Performed By: #### S EMCOMP #### [facility] [address] [place] [address] Non-Progression Sperm Motili 3 % Normal [facility] Comment on above: Performed By: #### S EMCOMP #### [facility] [address] [place] [address] Normal Sperm Morphology 48 % Normal >/=30 [facility] Comment on above: Result Comment: WHO Standards used to classify morphology. Performed By: #### S EMCOMP #### [address] Rapid Progression Sperm Motili 60 % Normal [facility] Comment on above: Result Comment: Refe rence: Total of Rapid and Slow Progression is >/= 50% or Rapid Progression only is >/= 25% Decreased motility percentage may be the result of non-viable or non-motile sperm. Performed By: #### S EMCOMP #### [address] Round Cell Concent, Semen 7 10*6/mL High <1 [facility] Comment on above: Result Comment: (Pot entially WBC's) Performed By: #### S EMCOMP #### [facility] [address] [place] [address] Semen Collection Method Masturbation [facility] Comment on above: Performed By: #### S EMCOMP #### [address] Semen Liquefaction Liquefied @ 180 min. [facility] Comment on above: Result Comment: PERF ORMED BY: [place] [address] PATHOLOGIST GLOBAL POSITION SYSTEM TECHNICIAN LESTER ROSSI M.D. Performed By: #### S EMCOMP #### [facility] [address] [place] [address] Semen Viscosity High Critically abnormal Normal [facility] Comment on above: Performed By: #### S EMCOMP #### [facility] [address] [place] [address] Semen Volume 3.5 mL Normal 2.0-5.0 [facility] Comment on above: Performed By: #### S EMCOMP #### [facility] [address] [place] [address] Slow Progression Sperm Motili 3 % Normal [facility] Comment on above: Performed By: #### S EMCOMP #### [facility] [address] Sperm Concentration 39 10*6/mL Normal >=20 [facility] Comment on above: Performed By: #### S EMCOMP #### [facility] [address] Testosteroneon 12-20-2020 Testosterone 4.56 ng/mL Normal 1.75-7.81 [facility] Comment on above: Result Comment: PERF ORMED BY: [facility] [address] [place] [address] PATHOLOGIST GLOBAL POSITION SYSTEM TECHNICIAN LESTER ROSSI M.D. Performed By: #### T EST, PRL, FSH #### [facility] [address] #### LH #### [facility] , Encounters Encounter Date Encounter Type Care Provider Facility Start: 03-20-2023 End: 03-21-2023 ambulatory Douglas MORA Facility:[facility] Start: 01-16-2022 End: 01-17-[address] ALEJANDRA POLLOCK Facility: Start: 10-28-2021 End: 10-28-[address] POPPY PARK Facility: Start: 06-02-2021 End: 06-02-[address] POPPY PARK Facility:[facility] Start: 03-20-2021 End: 03-21-[address] ALEJANDRA POLLOCK Facility: Start: 01-14-2017 End: 01-15-2017 Ambulatory DEFAULT PHYSICIAN Facility:[facility] Start: 01-03-2017 End: 01-04-2017 Ambulatory DEFAULT PHYSICIAN Facility:[facility] Payers Date Payer Category Payer Unknown [id number] [id number] [id number] 1995 Unknown [id number] [id number] [id number] 1995 Unknown [id number] [id number] [id number] 1995 Unknown [id number] [id number] [id number] 1960 Self-pay [id number] 1960 Unknown [id number] Unknown Summary Purpose Family History No Family [...] section and content) DATE CREATED AUTHOR 08/12/2017 [facility] DATE CREATED AUTHOR AUTHOR'S ORGANIZ ATION 03/13/2021 [facility] DATE CREATED AUTHOR AUTHOR'S ORGANIZ ATION 01/19/2022 [facility] DATE CREATED AUTHOR AUTHOR'S ORGANIZ ATION 03/21/2023 [facility] FOR RECORDS PERTAINING TO PATIENTS WHO [...] BE BASED ON THE PRIMARY CLINICAL RECORDS. [facility]. provides no warranty or guarantee of the accuracy or completeness of information in this document.
--- NOTE | 2023-06-22 22:29 | ECG_ITS ---
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
--- NOTE | 2023-06-22 22:35 | ED.GENADUL1 ---
HPI HPI - General Adult General Chief complaint: Anxiety Stated complaint: HIGH BLOOD PRESSURE Time Seen by Provider: 06/22/23 22:32 Source: patient Mode of arrival: walk-in Limitations: no limitations History of Present Illness HPI narrative: history of anxiety and panic attacks. States he takes Lexapro and it has help. Tonight he felt a twinge in his chest and became anxious and that triggered a panic. His arms became numb and his BP increased into the 190s. He decided to come in with his father. 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 30 mg PO DAILY 11/04/22 06/22/23 Thyroid) escitalopram oxalate 5 mg tablet 5 mg PO DAILY 06/22/23 06/22/23 Allergies Allergy/AdvReac Type Severity Reaction Status Date / Time No Known Drug Allergies Allergy Verified 06/22/23 22:25 Opioid HPI Opioid Management Most Recent Opioid Data: No Data to Display Review of Systems ROS Status of ROS 10 or more systems reviewed and unremarkable except as noted in history and below PFSH PFSH Social History Smoking status: Former smoker Exam Constitutional Vital Signs, click to edit/add: Last Vital Signs Temp 97.6 F 06/22/23 22:34 Pulse 60 06/22/23 22:50 Resp 18 06/22/23 22:50 BP 155/99 H 06/22/23 22:32 Pulse Ox 98 06/22/23 22:19 O2 Del Method Room Air 06/22/23 22:19 Common normals: no apparent distress, average body habitus, oriented x3, no limitations, healthy appearing, alert and well nourished [facility] Common normals: normocephalic and head/scalp atraumatic Eye Common normals: PERRL, EOMs intact bilaterally and conjunctivae normal Respiratory Common normals: normal respiratory effort, no retractions and no use of accessory muscles Cardio Common normals: regular rate, regular rhythm, S1 normal heart sound and S2 normal heart sound Extremity Common normals: normal to inspection and full ROM Neuro Common normals: oriented x3, CN's II-XII intact bilaterally, moves all extremities and no focal motor deficits Psych Appearance: grossly normal Course Vital Signs Vital signs: Vital Signs Pulse Rate 86 06/22/23 22:19 Respiratory Rate 20 06/22/23 22:19 Blood Pressure 166/101 H 06/22/23 22:19 Pulse Oximetry 98 06/22/23 22:19 Oxygen Delivery Method Room Air 06/22/23 22:19 Temperature 97.6 F 06/22/23 22:34 Pulse Rate 60 06/22/23 22:50 Respiratory Rate 18 06/22/23 22:50 Blood Pressure 155/99 H 06/22/23 22:32 Pulse Oximetry 98 06/22/23 22:19 Oxygen Delivery Method Room Air 06/22/23 22:19 Medical Decision Making MDM Narrative Medical decision making narrative: patient presents with a panic attack. Arrived to the ER and was already feeling better. observed without treatment and continued to improved. Discharge home asymptomatic Discharge Plan Discharge Stand Alone Forms: Portal Instructions Chief Complaint: Anxiety Clinical Impression: Panic disorder, Acute anxiety Patient Disposition: Home, Self-Care Prescriptions / Home Meds: No Action escitalopram oxalate 5 mg tablet 5 mg PO DAILY thyroid (pork) [HERBICIDE SERVICE SALES REPRESENTATIVE Thyroid] 30 mg tablet 30 mg PO DAILY Print Language: Martiniquais Instructions: Panic Attack (ED) Referrals: ALEJANDRA POLLOCK DO [Primary Care Provider] - 1 week
--- NOTE | 2023-06-22 22:39 | PC.NURSE ---
patient to er with hx of anxiety, states he thinks he might be having a panic attack but is unsure. patient reports hx of similar symptoms, c/o chest pains with numbness and tingling posterior forearms that are now resolved. he took his blood pressure on an old machine at his parents house and got a reading of 196/140, worsening his symptoms and causing shakiness and dizziness. patient states he believes his heavy drinking and smoking last night brought this on as it has happened in the past. patient blood pressure in ED 166/101. patient is shaky. denies any numbness or tingling at this time. reports he is starting to feel better now that he is in the ED. patient placed on continuous quality assurance monitor body and continuous pulse ox. recently started lexipro on 06/11 but did not take it today
== END 2023-06-22 23:27 | disposition home or self-care (01) ==
PROVIDERS: Emergency Provider Internal Medicine; PCP Family Medicine
DX: F41.0 Panic disorder [episodic paroxysmal anxiety] (principal); F41.9 Anxiety disorder, unspecified; Z79.899 Other long term (current) drug therapy; Z87.891 Personal history of nicotine dependence
CPT/HCPCS: 93005; 99281

== ENCOUNTER 2024-04-25 09:12 | Emergency (ER) | payer SELFPAY ==
[2024-04-25 09:17] VITALS: BP 146/82; PULSE 74; TEMP 36.6; O2SAT 97; BMI 25.1
--- OUTSIDE RECORDS SUMMARY | 2024-04-25 09:17 | XMS_ITS | CCD ---
Author Organization [facility]iniSy[facility] Care Team Providers Care Crm Manager Name Role Phone PHYSICIAN, DEFAULT Unavailable Unavailable [...] Medication Allergies] Propensity to adverse reactions (disorder) [facility] Repository Problems Active Problems Problem Classification [...] Interpretation Reference Range Facility [facility] 03-20-2023 Consent [id number]# 1.00TIFF Normal [facility] Registrationon 03-20-2023 Registration [id number]# 1.00TIFF [facility] ECHOCARDIO M/2D COMPLETEon 1 03-18-2021 ECHOCARDIO M/2D COMPLETE Patient: MARY OWENS Exam Date: 01/16/2022 : 1995 Gender:M Ordering : DR ALEJANDRA POLLOCK D.O. Admission #: [id number] Family : Order #: [id number] CLICK HERE TO VIEW EXAM ECHOCARDIOGRAM REPORT [...] Hanson M.D. on 01/16/2022 at 15:32 Normal FREE T3on 01-16-2022 FREE T3 3.14 pg/mlL Normal 2.18-3.98 Comment on above: Performed By: #### F T3, CMP, TSH #### [facility] [address] [address] [address] Patsy Funk FREE T4on 01-16-2022 Free T4 [Mass/Vol] 0.79 ng/dL Normal 0.76-1.46 [facility] Comment on above: Performed By: #### F T4 #### [facility] [address] [place] [address] Dr. Patsy Funk PROF 14(COMP METB)on 022 Albumin [Mass/Vol] 4.2 g/dL Normal 3.4-5.0 [facility] Comment on above: Performed By: #### F T3, CMP, TSH #### [facility] [address] [place] [address] Dr. Patsy Funk Albumin/Globulin [Mass ratio] 1.2 {ratio} Normal Comment on above: Performed By: #### F T3, CMP, TSH #### [facility] [address] [place] [address] Dr. Patsy Funk ALP [Catalytic activity/Vol] 70 U/L Normal 46-116 Comment on above: Performed By: #### F T3, CMP, TSH #### [facility] [address] [place] [address] Dr. Patsy Funk ALT [Catalytic activity/Vol] 22 U/L Normal 16-63 [facility] Comment on above: Performed By: #### F T3, CMP, TSH #### [facility] [address] [place] [address] Dr. Patsy Funk Anion gap [Moles/Vol] 12.2 mmol/L Normal Comment on above: Performed By: #### F T3, CMP, TSH #### [facility] [address] [place] [address] Dr. Patsy Funk AST [Catalytic activity/Vol] 18 U/L Normal 15-37 Comment on above: Performed By: #### F T3, CMP, TSH #### [facility] [address] [place] [address] Dr. Patsy Funk Bilirubin [Mass/Vol] 0.7 mg/dL Normal 0.2-1.0 Comment on above: Performed By: #### F T3, CMP, TSH #### [facility] [address] [place] [address] Dr. Patsy Funk Calcium [Mass/Vol] 9.3 mg/dL Normal 8.5-10.1 [facility] Comment on above: Performed By: #### F T3, CMP, TSH #### [facility] [address] [place] [address] Dr. Patsy Funk Chloride [Moles/Vol] 104 mmol/L Normal 98-107 Comment on above: Performed By: #### F T3, CMP, TSH #### [facility] [address] [place] [address] Dr. Patsy Funk CO2 [Moles/Vol] 28.0 mmol/L Normal 21.0-32.0 [facility] Comment on above: Performed By: #### F T3, CMP, TSH #### [facility] [address] [place] [address] Dr. Patsy Funk Creatinine [Mass/Vol] 0.78 mg/dL Normal 0.70-1.30 Comment on above: Performed By: #### F T3, CMP, TSH #### [facility] [address] [place] [address] Dr. Patsy Funk EGFR-AF PUERTO RICAN >60 Normal >=60 [facility] Comment on above: Performed By: #### F T3, CMP, TSH #### [facility] [address] [place] [address] Dr. Patsy Funk EGFR-NON AF PUERTO RICAN >60 Normal >=60 Comment on above: Performed By: #### F T3, CMP, TSH #### [facility] [address] [place] [address] Dr. Patsy Funk Globulin (S) [Mass/Vol] 3.5 g/dL Normal Comment on above: Performed By: #### F T3, CMP, TSH #### [facility] [address] [place] [address] Dr. Patsy Funk Glucose [Mass/Vol] 87 mg/dL Normal 74-106 [facility] Comment on above: Performed By: #### F T3, CMP, TSH #### [facility] [address] [address] [address] Patsy Funk Potassium [Moles/Vol] 4.2 mmol/L Normal 3.5-5.1 [facility] Comment on above: Performed By: #### F T3, CMP, TSH #### [facility] [address] [place] [address] Dr. Patsy Funk Protein [Mass/Vol] 7.7 g/dL Normal 6.4-8.2 [facility] Comment on above: Performed By: #### F T3, CMP, TSH #### [facility] [address] [place] [address] Dr. Patsy Funk Sodium [Moles/Vol] 140 mmol/L Normal 136-145 [facility] Comment on above: Performed By: #### F T3, CMP, TSH #### [facility] [address] [place] [address] Dr. Patsy Funk Urea nitrogen [Mass/Vol] 13.0 mg/dL Normal 7.0-18.0 Comment on above: Performed By: #### F T3, CMP, TSH #### [facility] [address] [place] [address] Dr. Patsy Funk Urea nitrogen/Creatinine [Mass ratio] 16.7 mg/mg Normal [facility] Comment on above: Performed By: #### F T3, CMP, TSH #### [facility] [address] [place] [address] Dr. Patsy Funk TSHon 01-16-2022 TSH 0.690 uIU/mL Normal 0.358-3.740 [facility] Comment on above: Performed By: #### F T3, CMP, TSH #### [facility] [address] [address] [address] Patsy Funk FREE T3on 03-21-2021 FREE T3 2.98 pg/mlL Normal 2.77-5.27 Comment on above: Performed By: #### F T3, TSH #### [facility] [address] [address] [address] Patsy Funk FREE T4on 03-21-2021 Free T4 [Mass/Vol] 0.79 ng/dL Normal 0.78-2.19 [facility] Comment on above: Performed By: #### F T4 #### [facility] [address] [address] [address] Patsy Funk TSHon 03-21-2021 TSH 0.673 uIU/mL Normal 0.470-4.680 [facility] Comment on above: Performed By: #### F T3, TSH #### [facility] [address] [address] [address] Patsy Funk TSH RANGE SEE BELOW Normal Comment on above: Result Comment: <0.3 4 UIU/ml HYPERTHYROID 0.34-5.60 UIU/ml EUTHYROID >5.60 UIU/ml HYPOTHYROID Performed By: #### F T3, TSH #### [facility] [address] [place] [address] Dr. Patsy Funk Semen Analysis, Fertilityon 01-08-2021 Abnormal Sperm Morphology 42 % [facility] Comment on above: Result Comment: WHO Standards used to classify morphology. Performed By: #### S EMCOMP #### [facility] [address] [place] [address] Abstinence Period, Semen A WEEK [facility] Comment on above: Performed By: #### S EMCOMP #### [facility] [address] [place] [address] Container Type, Semen Cup, Sterile [facility] Comment on above: Performed By: #### S EMCOMP #### [facility] [address] [place] [address] Immature Sperm 1 % [facility] Comment on above: Performed By: #### S EMCOMP #### [facility] [address] [place] [address] Immotile Sperm 25 % Normal [facility] Comment on above: Performed By: #### S EMCOMP #### [facility] [address] [place] [address] Non-Progression Sperm Motili 1 % Normal [facility] Comment on above: Performed By: #### S EMCOMP #### [facility] [address] [place] [address] Normal Sperm Morphology 57 % Normal >/=30 [facility] Comment on above: Result Comment: WHO Standards used to classify morphology. Performed By: #### S EMCOMP #### [address] Rapid Progression Sperm Motili 72 % Normal [facility] Comment on above: Result Comment: Refe rence: Total of Rapid and Slow Progression is >/= 50% or Rapid Progression only is >/= 25% Decreased motility percentage may be the result of non-viable or non-motile sperm. Performed By: #### S EMCOMP #### [address] Round Cell Concent, Semen 4 10*6/mL High <1 [facility] Comment on above: Result Comment: (Pot entially WBC's) Performed By: #### S EMCOMP #### [facility] [address] [place] [address] Semen Collection Method Masturbation [facility] Comment on above: Performed By: #### S EMCOMP #### [facility] [address] [place] [address] Semen Liquefaction Liquefied @ 60 min. [facility] Comment on above: Result Comment: PERF ORMED BY: [place] [address] PATHOLOGIST HELIOTHERAPIST LESTER ROSSI M.D. Performed By: #### S EMCOMP #### [address] [address] [place] Semen Viscosity Normal Normal Normal [facility] Comment on above: Performed By: #### S EMCOMP #### [facility] [address] [place] [address] Semen Volume 3.5 mL Normal 2.0-5.0 [facility] Comment on above: Performed By: #### S EMCOMP #### [facility] [address] [place] [address] Slow Progression Sperm Motili 2 % Normal [facility] Comment on above: Performed By: #### S EMCOMP #### [facility] [address] [place] [address] Sperm Concentration 46 10*6/mL Normal >=20 [facility] Comment on above: Performed By: #### S EMCOMP #### [facility] [address] [place] [address] Follicle Stimulating Hormone on 12-20-2020 Follicle Stimulating Hormone 6.5 m[iU]/mL Normal [facility] Comment on above: Result Comment: FEMA LE NORMALS (PREMENOPAUSE) MID-FOLLICULAR PHASE: 3.9-8.8 mIU/mL MID-CYCLE PEAK: 4.5-22.5 mIU/mL MID-LUTEAL PHASE: 1.8-5.1 mIU/mL FEMALE NORMALS (POSTMENOPAUSE): 16.7-113.6 mIU/mL MALE NORMALS: 1.3-19.3 mIU/mL Performed By: #### T EST, PRL, FSH #### [facility] [address] [place] [address] #### LH #### [facility] , Luteinizing Hormoneon 2020 Luteinizing Hormone 7.7 m[iU]/mL Normal 1.7-8.6 [facility] Comment on above: Result Comment: Perf ormed at: - [facility] [address] [id number] Director Of Early Childhood Education: Carrington Gayle PhD, Phone: [phone] PERFORMED BY: [place] [address] PATHOLOGIST HELIOTHERAPIST LESTER ROSSI M.D. Performed By: #### T EST, PRL, FSH #### [facility] [address] [place] [address] [place] #### LH #### [facility] , Prolactinon 12-20-2020 Prolactin 7.96 ng/mL Normal 2.64-13.13 [facility] Comment on above: Result Comment: PERF ORMED BY: [place] [address] PATHOLOGIST HELIOTHERAPIST LESTER ROSSI M.D. Performed By: #### T EST, PRL, FSH #### [address] #### LH #### [facility] , Semen Analysis, Fertilityon 12-20-2020 Abnormal Sperm Morphology 44 % Normal [facility] Comment on above: Result Comment: WHO Standards used to classify morphology. Performed By: #### S EMCOMP #### [facility] [address] [place] [address] Abstinence Period, Semen 48 HOURS Normal [facility] Comment on above: Result Comment: ADOLFO LE Performed By: #### S EMCOMP #### [facility] [address] [place] [address] Container Type, Semen Other Normal [facility] Comment on above: Performed By: #### S EMCOMP #### [facility] [address] [place] [address] Immature Sperm 8 % Normal [facility] Comment on above: Performed By: #### S EMCOMP #### [facility] [address] [place] [address] Immotile Sperm 34 % Normal [facility] Comment on above: Performed By: #### S EMCOMP #### [facility] [address] [place] [address] Non-Progression Sperm Motili 3 % Normal [facility] Comment on above: Performed By: #### S EMCOMP #### [facility] [address] [place] [address] Normal Sperm Morphology 48 % Normal >/=30 [facility] Comment on above: Result Comment: WHO Standards used to classify morphology. Performed By: #### S EMCOMP #### [address] Rapid Progression Sperm Motili 60 % Normal [facility] Comment on above: Result Comment: Refe rence: Total of Rapid and Slow Progression is >/= 50% or Rapid Progression only is >/= 25% Decreased motility percentage may be the result of non-viable or non-motile sperm. Performed By: #### S EMCOMP #### [address] Round Cell Concent, Semen 7 10*6/mL High <1 [facility] Comment on above: Result Comment: (Pot entially WBC's) Performed By: #### S EMCOMP #### [address] Semen Collection Method Masturbation [facility] Comment on above: Performed By: #### S EMCOMP #### [address] Semen Liquefaction Liquefied @ 180 min. [facility] Comment on above: Result Comment: PERF ORMED BY: [place] [address] PATHOLOGIST HELIOTHERAPIST LESTER ROSSI M.D. Performed By: #### S EMCOMP #### [address] Semen Viscosity High Critically abnormal [facility] Comment on above: Performed By: #### S EMCOMP #### [facility] [address] [place] [address] Semen Volume 3.5 mL Normal 2.0-5.0 [facility] Comment on above: Performed By: #### S EMCOMP #### [facility] [address] [place] [address] Slow Progression Sperm Motili 3 % [facility] Comment on above: Performed By: #### S EMCOMP #### [facility] [address] Sperm Concentration 39 10*6/mL Normal >=20 [facility] Comment on above: Performed By: #### S EMCOMP #### [facility] [address] Testosteroneon 12-20-2020 Testosterone 4.56 ng/mL Normal 1.75-7.81 [facility] Comment on above: Result Comment: PERF ORMED BY: [facility] [address] [place] [address] PATHOLOGIST HELIOTHERAPIST LESTER ROSSI M.D. Performed By: #### T EST, PRL, FSH #### [facility] [address] #### LH #### [facility] , Encounters Encounter Date Encounter Type Care Provider Facility Start: 03-20-2023 End: 03-21-2023 ambulatory Douglas MORGAN Facility:[facility] Start: 01-16-2022 End: 01-17-[address] ALEJANDRA POLLOCK Facility:[facility] Start: 10-28-2021 End: 10-28-[address] POPPY PARK Facility:[facility] Start: 06-02-2021 End: 06-02-[address] POPPY PARK Facility:[facility] Start: 03-20-2021 End: 03-21-[address] ALEJANDRA POLLOCK Facility: Start: 01-14-2017 End: 01-15-2017 Ambulatory DEFAULT PHYSICIAN Facility:[facility] Start: 01-03-2017 End: 01-04-2017 Ambulatory DEFAULT PHYSICIAN Facility:[facility] Payers Date Payer Category Payer Unknown [id number] 2.16.84 [id number] 1995 Unknown [id number] 2.16.84 [id number] 1995 Unknown [id number] 2.16.84 [id number] 1995 Unknown [id number] 2.16.84 [id number] 1960 Self-pay [id number] 1960 Unknown [id number] Unknown Summary Purpose Family History No Family [...] section and content) DATE CREATED AUTHOR 08/12/2017 [facility] DATE CREATED AUTHOR AUTHOR'S ORGANIZ ATION 03/13/2021 [facility] DATE CREATED AUTHOR AUTHOR'S ORGANIZ ATION 01/19/2022 [facility] DATE CREATED AUTHOR AUTHOR'S ORGANIZ ATION 03/21/2023 [facility] FOR RECORDS PERTAINING TO PATIENTS WHO ARE [...] BE BASED ON THE PRIMARY CLINICAL RECORDS. [facility] [employer] provides no warranty or guarantee of the accuracy or completeness of information in this document.
--- NOTE | 2024-04-25 09:28 | ED_ITS ---
HPI - Dental/Oral General Chief complaint: Dental/Oral Stated complaint: TOOTH ACHE Time Seen by Provider: 04/25/24 09:13 Source: patient and family Mode of arrival: walk-in Limitations: no limitations History of Present Illness HPI Narrative: 28-year-old male presents for pain to his left mandibular wisdom tooth. He has braces and he states that every year and a half or so he gets an infection of his tooth because of a flap of skin. He has had this discussion with his team primary care physician he does not feel that his wisdom teeth need to be removed. This time it started within the last day or 2 and its painful and moderate and throbbing and continuous. Related Data Home Medications ?Medication ?Instructions ?Recorded ?Confirmed thyroid (pork) 30 mg tablet (COMPRESSED GAS TESTER 30 mg PO DAILY 11/04/22 06/22/23 Thyroid) escitalopram oxalate 5 mg tablet 5 mg PO DAILY 06/22/23 06/22/23 Previous Rx's ?Medication ?Instructions ?Recorded hydrocodone 5 mg-acetaminophen 325 1 tab PO Q6H PRN pain 5 days #20 04/25/24 mg tablet tabs ibuprofen 800 mg tablet 800 mg PO Q8H PRN pain #20 tabs 04/25/24 penicillin V potassium 250 mg 250 mg PO QID 10 days #40 tabs 04/25/24 tablet Allergies Allergy/AdvReac Type Severity Reaction Status Date / Time No Known Drug Allergies Allergy Verified 04/25/24 09:28 Review of Systems ROS Narrative A ten point review of systems is negative except as noted above. PFSH PFSH Social History Smoking status: Former smoker Little interest or pleasure in doing things: not at all Feeling down, depressed, or hopeless: not at all Exam Narrative Exam Narrative: Nurses note and vital signs reviewed and patient is not hypoxic. General: The patient appears well and in no apparent distress. Patient is resting comfortably on cart. Skin: Warm, dry, no pallor noted. There is no rash noted. Head: Normocephalic, atraumatic Eye: Normal conjunctiva, no drainage Ears, Nose, Mouth, and Throat: oral mucosa is moist. Nares patent. The gingiva around the left mandibular third molar appears mildly inflamed. No pus or bleeding present. No swelling to the floor of his mouth. Cardiovascular: Regular Rate and Rhythm Respiratory: Patient is in no distress, no accessory muscle use, lungs are cl ear to auscultation, no wheezing, rales or rhonchi Back: non-tender GI: Soft and nontender Musculoskeletal: The patient has no evidence of calf tenderness, no pitting edema, symmetrical pulses noted bilaterally Neurological: A&O, normal speech Psychiatric: Cooperative Constitutional Vital Signs, click to edit/add: Last Vital Signs Temp 97.9 F 04/25/24 09:17 Pulse 74 04/25/24 09:17 Resp 18 04/25/24 09:17 BP 146/82 H 04/25/24 09:17 Pulse Ox 97 04/25/24 09:17 O2 Del Method Room Air 04/25/24 09:17 Course Vital Signs Vital signs: Vital Signs Temperature 97.9 F 04/25/24 09:17 Pulse Rate 74 04/25/24 09:17 Respiratory Rate 18 04/25/24 09:17 Blood Pressure 146/82 H 04/25/24 09:17 Pulse Oximetry 97 04/25/24 09:17 Oxygen Delivery Method Room Air 04/25/24 09:17 Temperature 97.9 F 04/25/24 09:17 Pulse Rate 74 04/25/24 09:17 Respiratory Rate 18 04/25/24 09:17 Blood Pressure 146/82 H 04/25/24 09:17 Pulse Oximetry 97 04/25/24 09:17 Oxygen Delivery Method Room Air 04/25/24 09:17 MDM - Dental/Oral MDM Narrative Medical decision making narrative: He is provided prescriptions for pain medicine and antibiotic. Treatment diagnosis and follow-up were discussed with the patient. Differential Diagnosis Differential diagnosis: Likely gingival abscess, dental caries and toothache Discharge Plan Discharge Chief Complaint: Dental/Oral Clinical Impression: Toothache Patient Disposition: Home, Self-Care Time of Disposition Decision: :27 Condition: Good Mode of Transportation: Private Vehicle Prescriptions / Home Meds: New ibuprofen 800 mg tablet 800 mg PO Q8H PRN (Reason: pain) Qty: 20 0RF hydrocodone-acetaminophen 5-325 mg tablet 1 tab PO Q6H PRN (Reason: pain) 5 Days Qty: 20 0RF penicillin V potassium 250 mg tablet 250 mg PO QID 10 Days Qty: 40 0RF No Action escitalopram oxalate 5 mg tablet 5 mg PO DAILY thyroid (pork) [COMPRESSED GAS TESTER Thyroid] 30 mg tablet 30 mg PO DAILY Print Language: Turkmen Instructions: Toothache (ED) Referrals: ALEJANDRA POLLOCK DO [Primary Care Provider] - 1 week
[2024-04-25] MEDS: PENICILLIN V POTASSIUM 250 MG TABLET PO (09:34)
== END 2024-04-25 09:44 | disposition home or self-care (01) ==
PROVIDERS: Emergency Provider Emergency Medicine; PCP Family Medicine
DX: K08.89 Other specified disorders of teeth and supporting structures (principal); Z87.891 Personal history of nicotine dependence
CPT/HCPCS: 99283

== ENCOUNTER 2024-05-06 10:09 | Emergency (ER) | payer SELFPAY ==
[2024-05-06 10:15] VITALS: BP 145/96; PULSE 73; TEMP 36.8; O2SAT 99; BMI 25.1
--- OUTSIDE RECORDS SUMMARY | 2024-05-06 10:19 | XMS_ITS | CCD ---
Author Organization [facility] CliniSyla Care Team Providers Care Building Construction Foreman Name Role Phone PHYSICIAN, DEFAULT Unavailable Unavailable [...] Medication Allergies] Propensity to adverse reactions (disorder) [facility] Repository Problems Active Problems Problem Classification [...] Interpretation Reference Range Facility [facility] 03-20-2023 Consent [id number]# 1.00TIFF Normal [facility] Registrationon 03-20-2023 Registration [id number]# 1.00TIFF [facility] ECHOCARDIO M/2D COMPLETEon 1 03-18-2021 ECHOCARDIO M/2D COMPLETE Patient: MARY OWENS Exam Date: 01/16/2022 : 1995 Gender:M Ordering : DR ALEJANDRA POLLOCK D.O. Admission #: [id number] Family : Order #: [id number] CLICK HERE TO VIEW EXAM ECHOCARDIOGRAM REPORT [...] Hanson M.D. on 01/16/2022 at 15:32 Normal [facility] FREE T3on 01-16-2022 FREE T3 3.14 pg/mlL Normal 2.18-3.98 [facility] Comment on above: Performed By: #### F T3, CMP, TSH #### [facility] [address] [address] [address] Patsy Funk FREE T4on 01-16-2022 Free T4 [Mass/Vol] 0.79 ng/dL Normal 0.76-1.46 [facility] [place] Comment on above: Performed By: #### F T4 #### [facility] [address] [place] [address] Dr. Patsy Funk PROF 14(COMP METB)on 022 Albumin [Mass/Vol] 4.2 g/dL Normal 3.4-5.0 [facility] Comment on above: Performed By: #### F T3, CMP, TSH #### [facility] [address] [place] [address] Dr. Patsy Funk Albumin/Globulin [Mass ratio] 1.2 {ratio} Normal [facility] Comment on above: Performed By: #### F T3, CMP, TSH #### [facility] [address] [place] [address] Dr. Patsy Funk ALP [Catalytic activity/Vol] 70 U/L Normal 46-116 [facility] Comment on above: Performed By: #### F T3, CMP, TSH #### [facility] [address] [place] [address] Dr. Patsy Funk ALT [Catalytic activity/Vol] 22 U/L Normal 16-63 [facility] Comment on above: Performed By: #### F T3, CMP, TSH #### [facility] [address] [place] [address] Dr. Patsy Funk Anion gap [Moles/Vol] 12.2 mmol/L Normal [facility] Comment on above: Performed By: #### F T3, CMP, TSH #### [facility] [address] [place] [address] Dr. Patsy Funk AST [Catalytic activity/Vol] 18 U/L Normal 15-37 [facility] Comment on above: Performed By: #### F T3, CMP, TSH #### [facility] [address] [place] [address] Dr. Patsy Funk Bilirubin [Mass/Vol] 0.7 mg/dL Normal 0.2-1.0 [facility] Comment on above: Performed By: #### F T3, CMP, TSH #### [facility] [address] [place] [address] Dr. Patsy Funk Calcium [Mass/Vol] 9.3 mg/dL Normal 8.5-10.1 [facility] Comment on above: Performed By: #### F T3, CMP, TSH #### [facility] [address] [place] [address] Dr. Patsy Funk Chloride [Moles/Vol] 104 mmol/L Normal 98-107 [facility] Comment on above: Performed By: #### F T3, CMP, TSH #### [facility] [address] [place] [address] Dr. Patsy Funk CO2 [Moles/Vol] 28.0 mmol/L Normal 21.0-32.0 [facility] Comment on above: Performed By: #### F T3, CMP, TSH #### [facility] [address] [place] [address] Dr. Patsy Funk Creatinine [Mass/Vol] 0.78 mg/dL Normal 0.70-1.30 [facility] Comment on above: Performed By: #### F T3, CMP, TSH #### [facility] [address] [place] [address] Dr. Patsy Funk EGFR-AF NAURUAN >60 Normal >=60 [facility] Comment on above: Performed By: #### F T3, CMP, TSH #### [facility] [address] [place] [address] Dr. Patsy Funk EGFR-NON AF NAURUAN >60 Normal >=60 [facility] Comment on above: Performed By: #### F T3, CMP, TSH #### [facility] [address] [place] [address] Dr. Patsy Funk Globulin (S) [Mass/Vol] 3.5 g/dL Normal [facility] Comment on above: Performed By: #### F T3, CMP, TSH #### [facility] [address] [place] [address] Dr. Patsy Funk Glucose [Mass/Vol] 87 mg/dL Normal 74-106 [facility] [place] Comment on above: Performed By: #### F T3, CMP, TSH #### [facility] [address] [address] [address] Patsy Funk Potassium [Moles/Vol] 4.2 mmol/L Normal 3.5-5.1 [facility] Comment on above: Performed By: #### F T3, CMP, TSH #### [facility] [address] [place] [address] Dr. Patsy Funk Protein [Mass/Vol] 7.7 g/dL Normal 6.4-8.2 [facility] [place] Comment on above: Performed By: #### F T3, CMP, TSH #### [facility] [address] [place] [address] Dr. Patsy Funk Sodium [Moles/Vol] 140 mmol/L Normal 136-145 [facility] [place] Comment on above: Performed By: #### F T3, CMP, TSH #### [facility] [address] [place] [address] Dr. Patsy Funk Urea nitrogen [Mass/Vol] 13.0 mg/dL Normal 7.0-18.0 [facility] Comment on above: Performed By: #### F T3, CMP, TSH #### [facility] [address] [place] [address] Dr. Patsy Funk Urea nitrogen/Creatinine [Mass ratio] 16.7 mg/mg Normal [facility] Comment on above: Performed By: #### F T3, CMP, TSH #### [facility] [address] [place] [address] Dr. Patsy Funk TSHon 01-16-2022 TSH 0.690 uIU/mL Normal 0.358-3.740 [facility] Comment on above: Performed By: #### F T3, CMP, TSH #### [facility] [address] [address] [address] Patsy Funk FREE T3on 03-21-2021 FREE T3 2.98 pg/mlL Normal 2.77-5.27 [facility] Comment on above: Performed By: #### F T3, TSH #### [facility] [address] [address] [address] Patsy Funk FREE T4on 03-21-2021 Free T4 [Mass/Vol] 0.79 ng/dL Normal 0.78-2.19 [facility] Comment on above: Performed By: #### F T4 #### [facility] [address] [address] [address] Patsy Funk TSHon 03-21-2021 TSH 0.673 uIU/mL Normal 0.470-4.680 [facility] Comment on above: Performed By: #### F T3, TSH #### [facility] [address] [address] [address] Patsy Funk TSH RANGE SEE BELOW Normal [facility] Comment on above: Result Comment: <0.3 4 UIU/ml HYPERTHYROID 0.34-5.60 UIU/ml EUTHYROID >5.60 UIU/ml HYPOTHYROID Performed By: #### F T3, TSH #### [facility] [address] [place] [address] Dr. Patsy Funk Semen Analysis, Fertilityon 01-08-2021 Abnormal Sperm Morphology 42 % [facility] Comment on above: Result Comment: WHO Standards used to classify morphology. Performed By: #### S EMCOMP #### [facility] [address] [place] [address] Abstinence Period, Semen A WEEK [facility] Comment on above: Performed By: #### S EMCOMP #### [facility] [address] [place] [address] Container Type, Semen Cup, Sterile [facility] Comment on above: Performed By: #### S EMCOMP #### [facility] [address] [place] [address] Immature Sperm 1 % [facility] Comment on above: Performed By: #### S EMCOMP #### [facility] [address] [place] [address] Immotile Sperm 25 % Normal [facility] Comment on above: Performed By: #### S EMCOMP #### [facility] [address] [place] [address] Non-Progression Sperm Motili 1 % Normal [facility] Comment on above: Performed By: #### S EMCOMP #### [facility] [address] [place] [address] Normal Sperm Morphology 57 % Normal >/=30 [facility] Comment on above: Result Comment: WHO Standards used to classify morphology. Performed By: #### S EMCOMP #### [address] Rapid Progression Sperm Motili 72 % Normal [facility] Comment on above: Result Comment: Refe rence: Total of Rapid and Slow Progression is >/= 50% or Rapid Progression only is >/= 25% Decreased motility percentage may be the result of non-viable or non-motile sperm. Performed By: #### S EMCOMP #### [address] Round Cell Concent, Semen 4 10*6/mL High <1 [facility] Comment on above: Result Comment: (Pot entially WBC's) Performed By: #### S EMCOMP #### [facility] [address] [place] [address] Semen Collection Method Masturbation [facility] Comment on above: Performed By: #### S EMCOMP #### [facility] [address] [place] [address] Semen Liquefaction Liquefied @ [address] [facility] Comment on above: Result Comment: PERF ORMED BY: [place] [address] PATHOLOGIST CINEMA OR THEATRE MANAGER LESTER ROSSI M.D. Performed By: #### S EMCOMP #### [address] [address] [place] Semen Viscosity Normal Normal Normal [facility] Comment on above: Performed By: #### S EMCOMP #### [facility] [address] [place] [address] Semen Volume 3.5 mL Normal 2.0-5.0 [facility] Comment on above: Performed By: #### S EMCOMP #### [facility] [address] [place] [address] Slow Progression Sperm Motili 2 % Normal [facility] Comment on above: Performed By: #### S EMCOMP #### [facility] [address] [place] [address] Sperm Concentration 46 10*6/mL Normal >=20 [facility] Comment on above: Performed By: #### S EMCOMP #### [facility] [address] [place] [address] Follicle Stimulating Hormone on 12-20-2020 Follicle Stimulating Hormone 6.5 m[iU]/mL Normal [facility] Comment on above: Result Comment: FEMA LE NORMALS (PREMENOPAUSE) MID-FOLLICULAR PHASE: 3.9-8.8 mIU/mL MID-CYCLE PEAK: 4.5-22.5 mIU/mL MID-LUTEAL PHASE: 1.8-5.1 mIU/mL FEMALE NORMALS (POSTMENOPAUSE): 16.7-113.6 mIU/mL MALE NORMALS: 1.3-19.3 mIU/mL Performed By: #### T EST, PRL, FSH #### [facility] [address] [place] [address] #### LH #### [facility] , Luteinizing Hormoneon 2020 Luteinizing Hormone 7.7 m[iU]/mL Normal 1.7-8.6 [facility] Comment on above: Result Comment: Perf ormed at: - [facility] [address] [id number] [employer] Teacher: Carrington Gayle PhD, Phone: [phone] PERFORMED BY: [place] [address] PATHOLOGIST CINEMA OR THEATRE MANAGER LESTER ROSSI M.D. Performed By: #### T EST, PRL, FSH #### [facility] [address] [place] [address] [place] #### LH #### [facility] , Prolactinon 12-20-2020 Prolactin 7.96 ng/mL Normal 2.64-13.13 [facility] Comment on above: Result Comment: PERF ORMED BY: [place] [address] PATHOLOGIST CINEMA OR THEATRE MANAGER LESTER ROSSI M.D. Performed By: #### T EST, PRL, FSH #### [address] #### LH #### [facility] , Semen Analysis, Fertilityon 12-20-2020 Abnormal Sperm Morphology 44 % Normal [facility] Comment on above: Result Comment: WHO Standards used to classify morphology. Performed By: #### S EMCOMP #### [facility] [address] [place] [address] Abstinence Period, Semen 48 HOURS Normal [facility] Comment on above: Result Comment: ADOLFO LE Performed By: #### S EMCOMP #### [facility] [address] [place] [address] Container Type, Semen Other Normal [facility] Comment on above: Performed By: #### S EMCOMP #### [facility] [address] [place] [address] Immature Sperm 8 % Normal [facility] Comment on above: Performed By: #### S EMCOMP #### [facility] [address] [place] [address] Immotile Sperm 34 % Normal [facility] Comment on above: Performed By: #### S EMCOMP #### [facility] [address] [place] [address] Non-Progression Sperm Motili 3 % Normal [facility] Comment on above: Performed By: #### S EMCOMP #### [facility] [address] [place] [address] Normal Sperm Morphology 48 % Normal >/=30 [facility] Comment on above: Result Comment: WHO Standards used to classify morphology. Performed By: #### S EMCOMP #### [address] Rapid Progression Sperm Motili 60 % Normal [facility] Comment on above: Result Comment: Refe rence: Total of Rapid and Slow Progression is >/= 50% or Rapid Progression only is >/= 25% Decreased motility percentage may be the result of non-viable or non-motile sperm. Performed By: #### S EMCOMP #### [address] Round Cell Concent, Semen 7 10*6/mL High <1 [facility] Comment on above: Result Comment: (Pot entially WBC's) Performed By: #### S EMCOMP #### [address] Semen Collection Method Masturbation [facility] Comment on above: Performed By: #### S EMCOMP #### [address] Semen Liquefaction Liquefied @ [address] [facility] Comment on above: Result Comment: PERF ORMED BY: [place] [address] PATHOLOGIST CINEMA OR THEATRE MANAGER LESTER ROSSI M.D. Performed By: #### S EMCOMP #### [address] Semen Viscosity High Critically abnormal [facility] Comment on above: Performed By: #### S EMCOMP #### [facility] [address] [place] [address] Semen Volume 3.5 mL Normal 2.0-5.0 [facility] Comment on above: Performed By: #### S EMCOMP #### [facility] [address] [place] [address] Slow Progression Sperm Motili 3 % [facility] Comment on above: Performed By: #### S EMCOMP #### [facility] [address] Sperm Concentration 39 10*6/mL Normal >=20 [facility] Comment on above: Performed By: #### S EMCOMP #### [facility] [address] Testosteroneon 12-20-2020 Testosterone 4.56 ng/mL Normal 1.75-7.81 [facility] Comment on above: Result Comment: PERF ORMED BY: [facility] [address] [place] [address] PATHOLOGIST CINEMA OR THEATRE MANAGER LESTER ROSSI M.D. Performed By: #### T EST, PRL, FSH #### [facility] [address] #### LH #### [facility] , Encounters Encounter Date Encounter Type Care Provider Facility Start: 03-20-2023 End: 03-21-2023 ambulatory Douglas MORGAN Facility:[facility] Start: 01-16-2022 End: 01-17-[address] ALEJANDRA POLLOCK Facility:[facility] Start: 10-28-2021 End: 10-28-[address] POPPY PARK Facility:[facility] Start: 06-02-2021 End: 06-02-[address] POPPY PARK Facility:[facility] Start: 03-20-2021 End: 03-21-[address] ALEJANDRA POLLOCK Facility: Start: 01-14-2017 End: 01-15-2017 Ambulatory DEFAULT PHYSICIAN Facility:[facility] Start: 01-03-2017 End: 01-04-2017 Ambulatory DEFAULT PHYSICIAN Facility:[facility] Payers Date Payer Category Payer Unknown [id number] 2.16.84 [id number] 1995 Unknown [id number] 2.16.84 [id number] 1995 Unknown [id number] 2.16.84 [id number] 1995 Unknown [id number] 2.16.84 [id number] 1960 Self-pay [id number] 1960 Unknown [id number] Unknown Summary Purpose Family History No Family [...] section and content) DATE CREATED AUTHOR 08/12/2017 [facility] DATE CREATED AUTHOR AUTHOR'S ORGANIZ ATION 03/13/2021 [facility] DATE CREATED AUTHOR AUTHOR'S ORGANIZ ATION 01/19/2022 [facility] DATE CREATED AUTHOR AUTHOR'S ORGANIZ ATION 03/21/2023 [facility] FOR RECORDS PERTAINING TO PATIENTS WHO ARE [...] BE BASED ON THE PRIMARY CLINICAL RECORDS. [facility] [email or web address] provides no warranty or guarantee of the accuracy or completeness of information in this document.
--- NOTE | 2024-05-06 10:34 | ECG_ITS ---
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
[2024-05-06] MEDS: FAMOTIDINE 20 MG TABLET PO (10:53)
[2024-05-06] MEDS: ONDANSETRON 4 MG RAPDIS TABLET SL (10:53)
--- NOTE | 2024-05-06 10:56 | ED.GENADUL1 ---
HPI HPI - General Adult General Chief complaint: Weakness Stated complaint: POSSIBLE DEHYDRATION Time Seen by Provider: 05/06/24 10:22 Source: patient Mode of arrival: walk-in Limitations: no limitations History of Present Illness HPI narrative: The patient is a 28-year-old male with no significant known past medical history except for asthma, is coming to the ER with nonspecific symptoms of some nausea on and off in addition to epigastric discomfort, patient was drinking over the weekend and he mentioned all the symptoms started after that, he also have some diarrhea and some chills on Friday that resolved right now , Patient denies any abdominal pain and any chest pain he also denies any shortness of breath Related Data Home Medications ?Medication ?Instructions ?Recorded ?Confirmed thyroid (pork) 30 mg tablet (DATACAP DEVELOPER 30 mg PO DAILY 11/04/22 05/06/24 Thyroid) escitalopram oxalate 5 mg tablet 5 mg PO DAILY 06/22/23 06/22/23 sertraline 25 mg tablet 25 mg PO QDAY 05/06/24 05/06/24 Previous Rx's ?Medication ?Instructions ?Recorded hydrocodone 5 mg-acetaminophen 325 1 tab PO Q6H PRN pain 5 days #20 04/25/24 mg tablet tabs ibuprofen 800 mg tablet 800 mg PO Q8H PRN pain #20 tabs 04/25/24 penicillin V potassium 250 mg 250 mg PO QID 10 days #40 tabs 04/25/24 tablet famotidine 20 mg tablet (Pepcid) 20 mg PO BID #10 tabs 05/06/24 ondansetron 4 mg disintegrating 4 mg PO Q8H PRN nausea and 05/06/24 tablet vomiting 48 hours #6 tabs Allergies Allergy/AdvReac Type Severity Reaction Status Date / Time No Known Drug Allergies Allergy Verified 05/06/24 10:20 Opioid HPI Opioid Management Most Recent Opioid Data: No Data to Display Review of Systems ROS Status of ROS 10 or more systems reviewed and unremarkable except as noted in history and below PFSH PFSH Social History Smoking status: Former smoker Little interest or pleasure in doing things: not at all Feeling down, depressed, or hopeless: not at all Exam Narrative Exam Narrative: Nurses notes and vital signs reviewed and patient is not hypoxic. General: Well-appearing and in no apparent distress. Skin: Warm, dry, no pallor noted. No rash. Head: Normocephalic, atraumatic. Neck: Supple, non-tender. Ears, Nose, Mouth, and Throat: Oral mucosa is moist, Cardiovascular: Regular Rate and Rhythm without murmur, gallop or rub. Respiratory: No accessory muscle use or respiratory distress. Lungs are clear to auscultation, no wheezing, rales or rhonchi Chest Wall: no tenderness Back: No midline thoracic or lumbar vertebral tenderness. No CVA tenderness Musculoskeletal: normal ROM, no calf or popliteal tenderness, no lower extremity edema/swelling GI: Abdomen is soft, non-distended. Normal bowel sounds. No masses appreciated. No tenderness to palpation. No rebound, guarding, or rigidity noted. Neurological: A&O x4. No cranial nerve dysfunction observed. Moves all extremities. Sensation intact. Psychiatric: Cooperative and interactive. Normal mood and affect. Constitutional Vital Signs, click to edit/add: Last Vital Signs Temp 98.2 F 05/06/24 10:15 Pulse 73 05/06/24 10:15 Resp 05/06/24 10:15 BP 145/96 H 05/06/24 10:15 Pulse Ox 99 05/06/24 10:15 O2 Del Method Room Air 05/06/24 10:15 Course Vital Signs Vital signs: Vital Signs Temperature 98.2 F 05/06/24 10:15 Pulse Rate 73 05/06/24 10:15 Respiratory Rate 20 05/06/24 10:15 Blood Pressure 145/96 H 05/06/24 10:15 Pulse Oximetry 99 05/06/24 10:15 Oxygen Delivery Method Room Air 05/06/24 10:15 Temperature 98.2 F 05/06/24 10:15 Pulse Rate 73 05/06/24 10:15 Respiratory Rate 20 05/06/24 10:15 Blood Pressure 145/96 H 05/06/24 10:15 Pulse Oximetry 99 05/06/24 10:15 Oxygen Delivery Method Room Air 05/06/24 10:15 Medical Decision Making MDM Narrative Medical decision making narrative: The patient had a EKG in the ER showing sinus rhythm with a heart rate of 64----normal no ST elevation or depression The patient was treated in the ER with Zofran and Pepcid He was also tested for COVID and flu that were negative Patient presentation mostly secondary to gastroenteritis secondary to viral illness specially that he have diarrhea in addition to chills and nausea The patient is to follow up with primary care physician in next 2-3 days or to return to the emergency department should any of the signs or symptoms worsen or new symptoms develop. The patient agrees with the following Diagnosis and Treatment plan and the patient will be discharged home. Lab Data Labs: Lab Results 05/06/24 Range/Units 10:40 Influenza Type A Ag Negative Influenza Type B Ag Negative SARS-CoV-2 Ag (CV2AG) Negative (NEGATIVE) Discharge Plan Discharge Chief Complaint: Weakness Clinical Impression: Gastroenteritis Patient Disposition: Home, Self-Care Time of Disposition Decision: 11:22 Condition: Good Prescriptions / Home Meds: New ondansetron 4 mg tablet,disintegrating 4 mg PO Q8H PRN (Reason: nausea and vomiting) 2 Days Qty: 6 0RF famotidine [Pepcid] 20 mg tablet 20 mg PO BID Qty: 10 0RF No Action escitalopram oxalate 5 mg tablet 5 mg PO DAILY sertraline 25 mg tablet 25 mg PO QDAY thyroid (pork) [DATACAP DEVELOPER Thyroid] 30 mg tablet 30 mg PO DAILY ibuprofen 800 mg tablet 800 mg PO Q8H PRN (Reason: pain) Qty: 20 0RF hydrocodone-acetaminophen 5-325 mg tablet 1 tab PO Q6H PRN (Reason: pain) 5 Days Qty: 20 0RF penicillin V potassium 250 mg tablet 250 mg PO QID 10 Days Qty: 40 0RF Print Language: Citizen Of [place] Instructions: Acute Nausea and Vomiting (DC), Enteritis (ED) Referrals: Physician,Non-Staff, MD [Primary Care Provider] - 1 week
[2024-05-06 11:13] LABS: Influenza Virus A Antigen Negative; Influenza Virus B Antigen Negative; Internal Control Within Normal Limits
[2024-05-06 11:14] LABS: Internal Control Within Normal Limits; SARS-CoV-2 Ag NEGATIVE (NEGATIVE)
== END 2024-05-06 11:31 | disposition home or self-care (01) ==
PROVIDERS: Emergency Provider Emergency Medicine
DX: K52.9 Noninfective gastroenteritis and colitis, unspecified (principal); J45.909 Unspecified asthma, uncomplicated; Z87.891 Personal history of nicotine dependence
CPT/HCPCS: 87804; 87811; 93005; 99284; Q0162

== ENCOUNTER 2025-01-28 14:53 | Emergency (ER) | payer SELFPAY ==
[2025-01-28 15:02] VITALS: BP 136/82; PULSE 72; TEMP 36.9; O2SAT 100; BMI 25.1
[2025-01-28] MEDS: DEXAMETHASONE SOD PHOS 10 MG/ML VIAL PO (16:11)
[2025-01-28 16:20] LABS: SARS-CoV-2 Ag POSITIVE (NEGATIVE)
--- NOTE | 2025-01-28 16:39 | ED.URI1 ---
HPI - URI/Sore Throat General Chief Complaint: Upper Respiratory Infection Stated Complaint: SORE THROAT Time Seen by Provider: 01/28/25 15:04 Source: patient Limitations: no limitations History of Present Illness HPI Narrative: 29-year-old male presents here with chief complaint of sore throat cough congestion rhinorrhea. He said symptoms for probably 1 week. Patient is here for evaluation because holidays are coming and he is concerned of having COVID. Patient is afebrile nontoxic at this time. Related Data Home Medications ?Medication ?Instructions ?Recorded ?Confirmed thyroid (pork) 30 mg tablet (JAMMER HOOKER 30 mg PO DAILY 11/04/22 05/06/24 Thyroid) escitalopram oxalate 5 mg tablet 5 mg PO DAILY 06/22/23 06/22/23 sertraline 25 mg tablet 25 mg PO QDAY 05/06/24 05/06/24 Previous Rx's ?Medication ?Instructions ?Recorded hydrocodone 5 mg-acetaminophen 325 1 tab PO Q6H PRN pain 5 days #20 04/25/24 mg tablet tabs ibuprofen 800 mg tablet 800 mg PO Q8H PRN pain #20 tabs 04/25/24 penicillin V potassium 250 mg 250 mg PO QID 10 days #40 tabs 04/25/24 tablet famotidine 20 mg tablet (Pepcid) 20 mg PO BID #10 tabs 05/06/24 ondansetron 4 mg disintegrating 4 mg PO Q8H PRN nausea and 05/06/24 tablet vomiting 48 hours #6 tabs Allergies Allergy/AdvReac Type Severity Reaction Status Date / Time No Known Drug Allergies Allergy Verified 05/06/24 10:20 Review of Systems ROS Status of ROS 10 or more systems reviewed and unremarkable except as noted in history and below [facility] Social History Smoking status: Former smoker Little interest or pleasure in doing things: not at all Feeling down, depressed, or hopeless: not at all Exam Narrative Exam Narrative: All Systems are negative except as noted/marked.All systems reviewed and otherwise negative Nurses note and vital signs reviewed and patient is not hypoxic. General: The patient appears well and in no apparent distress. Patient is resting comfortably on cart. Skin: Warm, dry, no pallor noted. There is no rash noted. Head: Normocephalic, atraumatic Eye: Normal conjunctiva, no drainage, EOMI. PERRL Ears, Nose, Mouth, and Throat: Clear rhinorrhea, oral mucosa is moist. Nares patent. Mouth without vesicles. Ear canals patent. Tm's without Erythema Cardiovascular: Regular Rate and Rhythm Respiratory: Patient is in no distress, no accessory muscle use, lungs are clear to auscultation, no wheezing, rales or rhonchi Back: non-tender, no CVA tenderness bilaterally to percussion. GI: Normal bowel sounds, no tenderness to palpation, no masses appreciated. No rebound, guarding, or rigidity noted. Musculoskeletal: The patient has no evidence of calf tenderness, no pitting edema, symmetrical pulses noted bilaterally Neurological: A&O x4, normal speech Psychiatric: Cooperative Constitutional Vital Signs, click to edit/add: Last Vital Signs Temp 98.5 F 01/28/25 15:02 Pulse 72 01/28/25 15:02 Resp 18 01/28/25 15:02 BP 136/82 01/28/25 15:02 Pulse Ox 100 01/28/25 15:02 O2 Del Method Room Air 01/28/25 15:02 Course Vital Signs Vital signs: Vital Signs Temperature 98.5 F 01/28/25 15:02 Pulse Rate 72 01/28/25 15:02 Respiratory Rate 18 01/28/25 15:02 Blood Pressure 136/82 01/28/25 15:02 Pulse Oximetry 100 01/28/25 15:02 Oxygen Delivery Method Room Air 01/28/25 15:02 Temperature 98.5 F 01/28/25 15:02 Pulse Rate 72 01/28/25 15:02 Respiratory Rate 18 01/28/25 15:02 Blood Pressure 136/82 01/28/25 15:02 Pulse Oximetry 100 01/28/25 15:02 Oxygen Delivery Method Room Air 01/28/25 15:02 MDM - URI/Sore Throat MDM Narrative Medical decision making narrative: 29-year-old male presents here with chief complaint of sore throat cough congestion rhinorrhea. He said symptoms for probably 1 week. Patient is here for evaluation because holidays are coming and he is concerned of having COVID. Patient is afebrile nontoxic at this time. Patient presented here chief complaint URI-like symptoms. COVID is positive. Patient has been sick for over a week. He will follow-up primary care physician. Denies need for a work note. Patient was given instructions and follow-up patient agrees with plan of care Differential Diagnosis Differential diagnosis: Likely upper respiratory infection, sinusitis, viral infection and bronchitis Medical Records Attestation: I reviewed the patient's medical records. Lab Data Attestation: I reviewed the patient's lab results. Labs: Lab Results 01/28/25 01/28/25 Range/Units 15:05 15:58 Influenza Type A Ag Negative Influenza Type B Ag Negative SARS-CoV-2 Ag (CV2AG) Positive A (NEGATIVE) Streptococcus Screen Negative Discharge Plan Discharge Chief Complaint: Upper Respiratory Infection Clinical Impression: COVID Patient Disposition: Home, Self-Care Time of Disposition Decision: 16:33 Condition: Good Prescriptions / Home Meds: No Action escitalopram oxalate 5 mg tablet 5 mg PO DAILY sertraline 25 mg tablet 25 mg PO QDAY ondansetron 4 mg tablet,disintegrating 4 mg PO Q8H PRN (Reason: nausea and vomiting) 2 Days Qty: 6 0RF famotidine [Pepcid] 20 mg tablet 20 mg PO BID Qty: 10 0RF thyroid (pork) [JAMMER HOOKER Thyroid] 30 mg tablet 30 mg PO DAILY ibuprofen 800 mg tablet 800 mg PO Q8H PRN (Reason: pain) Qty: 20 0RF hydrocodone-acetaminophen 5-325 mg tablet 1 tab PO Q6H PRN (Reason: pain) 5 Days Qty: 20 0RF penicillin V potassium 250 mg tablet 250 mg PO QID 10 Days Qty: 40 0RF Print Language: Cymraes Instructions: COVID-19 (Coronavirus Disease 2019) (ED) Referrals: Physician,Non-Staff, MD [Primary Care Provider] - 1 week
--- OUTSIDE RECORDS SUMMARY | 2025-01-28 16:41 | XMS_ITS | CCD ---
Author Organization [facility] Care Team Providers Care Size Tester Name Role Phone PHYSICIAN, DEFAULT Unavailable Unavailable [...] DR ALEJANDRA Cummins Attending Unavailable POLLOCK, DR ALEJANDAR Cummins Consulting Unavailable POLLOCK, DR ALEJANDRA Cummins Primary Care Unavailable POLLOCK, DR ALEJANDRA Cummins Admitting Unavailable PARK, DR POPPY Hernandez Attending Unavailable PARK, DR POPPY Hernandez Admitting Unavailable POLLOCK, DR ALEJANDRA Cummins Primary Care Unavailable MORGANDouglas Attending Unavailable Allergies Allergy ClassificationReported Allergen(s)Allergy TypeDate of OnsetReaction(s) Facility (1 source)No Known Medication Allergies; Translations: [No Known Medication Allergies]Propensity to adverse reactions (disorder)[facility] Repository Problems Active Problems Problem ClassificationProblemDateDocumented DateEpisodic/ChronicDisorders of teeth and jaw (4 sources)Other specified disorders of teeth and supporting structures; Translations: [OTH SPEC DISORDERS TEETH SUPP STRCT]Onset: 06-87-5881Ghzzdzvz Heart valve disorders (1 source)Cardiac murmur, unspecified; Translations: [CARDIAC MURMUR UNSPECIFIED]Onset: 14-94-7828VrffpafyCoiqbvrwm and history of mental health and substance abuse codes (1 source)Personal history of nicotine dependence; Translations: [PERSONAL HISTORY OF NICOTINE DEPEND]Onset: 21-57-6820PcinxdzgSolpcpc disorders (4 sources)Hypothyroidism, unspecified; Translations: [HYPOTHYROIDISM UNSPECIFIED]Onset: 01-14-1045Ijmfiny Past or Other Problems Problem ClassificationProblemDateDocumented DateEpisodic/ChronicResidual codes; unclassified (4 sources)Procedure and treatment not carried out due to patient leaving prior to being seen by health care provider; Translations: [PROC AND TX NOT CARRIED OUT PT LEAVE]Onset: 08-56-5007Rzybzolm Results Test NameValueInterpretationReference RangeFacilityECHOCARDIO M/2D COMPLETEon 23-65-4756PYOCWBXCJO M/2D COMPLETEPatient: MARY OWENS Exam Date: 01/16/2022 : 1995 Gender:M Ordering : DR ALEJANDRA POLLOCK D.O. Admission #: [id number] Family : Order #: [id number] CLICK HERE TO VIEW EXAM ECHOCARDIOGRAM REPORT [...] by: Shagufta Hanson M.D. on 01/16/2022 at 15:32[facility] T3on 16-42-1917RPHE T33.14 pg/mlLNormal2.18-3.98The [facility] on above:Performed By: #### FT3, CMP, TSH #### [facility] [address] [place] [address] Dr. Patsy Small T4on 92-67-2059Drmk T4 [Mass/Vol]0.79 ng/dLNormal0.76-1.46 [facility]Comment on above:Performed By: #### FT4 #### [facility] [address] [address] [address] Patsy FunkPROF 14(COMP METB)on 01-11-5695Pqebcfa [Mass/Vol]4.2 g/dLNormal 3.4-5.0[facility] on above:Performed By: #### FT3, CMP, TSH #### [facility] [address] [place] [address] Dr. Patsy FunkAlbumin/Globulin [Mass ratio]1.2 {ratio}NormalThe [facility] Healthcarement on above:Performed By: #### FT3, CMP, TSH #### [facility] [address] [address] [address] Patsy Pearce [Catalytic activity/Vol]70 U/EPkbpcy50-699Szi [facility] on above:Performed By: #### FT3, CMP, TSH #### [facility] [address] [place] [address] Dr. Patsy Deleon [Catalytic activity/Vol]22 U/QSfzxqy12-23Xwv [facility] Healthcarement on above:Performed By: #### FT3, CMP, TSH #### [facility] [address] [place] [address] Dr. Patsy Castaneda gap [Moles/Vol]12.2 mmol/LNormalThe [facility] on above:Performed By: #### FT3, CMP, TSH #### [facility] [address] [place] [address] Dr. Patsy Meza [Catalytic activity/Vol]18 U/VCvdgde78-82Mon [facility] on above:Performed By: #### FT3, CMP, TSH #### [facility] [address] [place] [address] Dr. Patsy FnukBilirubin [Mass/Vol]0.7 mg/dLNormal0.2-1.0[facility] Comment on above:Performed By: #### FT3, CMP, TSH #### [facility] [address] [place] [address] Dr. Patsy FunkCalcium [Mass/Vol]9.3 mg/dLNormal8.5-10.1[facility] Comment on above:Performed By: #### FT3, CMP, TSH #### [facility] [address] [place] [address] Dr. Patsy FunkChloride [Moles/Vol]104 mmol/ATpicyt10-117YotPromedica Memorial Hospital Comment on above:Performed By: #### FT3, CMP, TSH #### [facility] [address] [place] [address] Dr. Patsy FunkCO2 [Moles/Vol]28.0 mmol/MSxazdh25.0-32.0[facility] Comment on above:Performed By: #### FT3, CMP, TSH #### [facility] [address] [place] [address] Dr. Patsy FunkCreatinine [Mass/Vol]0.78 mg/dLNormal0.70-1.30The [facility] HospitalComment on above:Performed By: #### FT3, CMP, TSH #### [facility] [address] [place] [address] Dr. Patsy MeadGFR-AF CITIZEN OF [place]>60Normal>=60[facility] HospitalComment on above:Performed By: #### FT3, CMP, TSH #### [facility] [address] [place] [address] Dr. Patsy MeadGFR-NON AF CITIZEN OF [place]>60Normal>=60The [facility] HospitalComment on above:Performed By: #### FT3, CMP, TSH #### [facility] [address] [place] [address] Dr. Patsy FunkGlobulin (S) [Mass/Vol]3.5 g/dLNormSt. Elizabeth HospitalComment on above:Performed By: #### FT3, CMP, TSH #### [facility] [address] [address] [address] Patsy FunkGlucose [Mass/Vol]87 mg/fCRbehcs78-623KjyPromedica Memorial Hospital Comment on above:Performed By: #### FT3, CMP, TSH #### [facility] [address] [address] [address] Patsy FunkPotassium [Moles/Vol]4.2 mmol/LNormal3.5-5.1[facility] Comment on above:Performed By: #### FT3, CMP, TSH #### [facility] [address] [place] [address] Dr. Patsy FunkProtein [Mass/Vol]7.7 g/dLNormal6.4-8.2[facility] Comment on above:Performed By: #### FT3, CMP, TSH #### [facility] [address] [place] [address] Dr. Patsy FunkSodium [Moles/Vol]140 mmol/OWqmywp964-190Omj [facility] Comment on above:Performed By: #### FT3, CMP, TSH #### [facility] [address] [place] [address] Dr. Patsy FunkUrea nitrogen [Mass/Vol]13.0 mg/dLNormal7.0-18.0The [facility] HospitalComment on above:Performed By: #### FT3, CMP, TSH #### [facility] [address] [place] [address] Dr. Patsy FunkUrea nitrogen/Creatinine [Mass ratio]16.7 mg/mgNoUniversity Hospitals TriPoint Medical CenterComment on above:Performed By: #### FT3, CMP, TSH #### [facility] [address] [place] [address] Dr. Patsy Meek 72-57-3122NEJ1.690 uIU/mLNormal0.358-3.740The [facility] on above:Performed By: #### FT3, CMP, TSH #### [facility] [address] [address] [address] Patsy Small T3on 28-92-1882TEZP T32.98 pg/mlLNormal2.77-5.27The [facility] on above:Performed By: #### FT3, TSH #### [facility] [address] [place] [address] Dr. Patsy Small T4on 18-12-7541Wvmv T4 [Mass/Vol]0.79 ng/dLNormal0.78-2.19 [facility] on above:Performed By: #### FT4 #### [facility] [address] [place] [address] Dr. Patsy Meek 28-46-0733EWP2.673 uIU/mLNormal0.470-4.680The [facility] on above:Performed By: #### FT3, TSH #### [facility] [address] [place] [address] Dr. Patsy Awad [facility] on above: Result Comment: <0.34 UIU/ml HYPERTHYROID 0.34-5.60 UIU/ml EUTHYROID >5.60 UIU/ml HYPOTHYROIDPerformed By: #### FT3, TSH #### [facility] [address] [place] [address] Dr. Patsy Inman Analysis, Fertilityon 63-89-3899Qobhnrnl Sperm Kgrbizwtyl42 %NormalChillicothe Va Medical CenterComment on above:Result Comment: WHO Standards used to classify morphology.Performed By: #### SEMCOMP #### [facility] [address] [place] [address] USAAbstinence Period, SemenA WEEKCentervilleComup health system on above:Performed By: #### SEMCOMP #### [facility] [address] [place] [address] USAContainer Type, SemenCup, SterileCentervilleComment on above:Performed By: #### SEMCOMP #### [facility] [address] [place] [address] USAImmature Sperm1 %[place] Comment on above:Performed By: #### SEMCOMP #### [facility] [address] [place] [address] USAImmotile Sperm25 %[place] Comment on above:Performed By: #### SEMCOMP #### [address] [address] USANon-Progression Sperm Motili1 %CentervilleComment on above:Performed By: #### SEMCOMP #### [address] [address] USANormal Sperm Xoyhzpqspd05 %Normal>/=30[facility] CenterComment on above:Result Comment: WHO Standards used to classify morphology.Performed By: #### SEMCOMP #### [address] [address] USARapid Progression Sperm Sqqxan21 %CentervilleComment on above:Result Comment: Reference: Total of Rapid and Slow Progression is >/= 50% or Rapid Progression only is >/= 25% Decreased motility percentage may be the result of non-viable or non-motile sperm.Performed By: #### SEMCOMP #### [place] [address] USARound Cell Concent, Semen4 10*6/mLHigh<1FSelect Medical TriHealth Rehabilitation HospitalComment on above:Result Comment: (Potentially WBC's)Performed By: #### SEMCOMP #### [facility] [address] [place] [address] USASemen Collection MethodMasturbationNoParma Community General HospitalComment on above:Performed By: #### SEMCOMP #### [address] [address] USASemen LiquefactionLiquefied @ 60 min.CentervilleComment on above:Result Comment: PERFORMED BY: [place] [address] PATHOLOGIST DOWEL MAKER LESTER ROSSI M.D.Performed By: #### SEMCOMP #### [place] [address] USASemen ViscosityNormalNormalNormalChillicothe Va Medical CenterComment on above:Performed By: #### SEMCOMP #### [place] [address] USASemen Volume3.5 mLNormal2.0-5.0[facility] Medical CenterComment on above:Performed By: #### SEMCOMP #### [place] [address] USASlow Progression Sperm Motili2 %NormalChillicothe Va Medical CenterComment on above:Performed By: #### SEMCOMP #### [place] [address] USASperm Cwtnephnwfzvk27 10*6/mLNormal>=20[facility] CenterComment on above:Performed By: #### SEMCOMP #### [place] [address] USAFollicle Stimulating Hormoneon 00-01-4716Cvwasmht Stimulating Hormone6.5 m[iU]/mLNormalChillicothe Va Medical CenterComment on above:Result Comment: FEMALE NORMALS (PREMENOPAUSE) MID-FOLLICULAR PHASE: 3.9-8.8 mIU/mL MID-CYCLE PEAK: 4.5-22.5 mIU/mL MID-LUTEAL PHASE: 1.8-5.1 mIU/mL FEMALE NORMALS (POSTMENOPAUSE): 16.7-113.6 mIU/mL MALE NORMALS: 1.3-19.3 mIU/mLPerformed By: #### TEST, PRL, FSH #### [place] [address] [place] #### LH #### [facility] ,Luteinizing Hormoneon 82-97-7407Htgxolgjlck Hormone7.7 m[iU]/mLNormal1.7-8.6 [facility] CenterComment on above:Result Comment: Performed at: - [facility] [address] [id number] Manager Planning: Carrington Gayle PhD, Phone: [phone] PERFORMED BY: [place] [address] PATHOLOGIST DOWEL MAKER LESTER ROSSI M.D.Performed By: #### TEST, PRL, FSH #### [place] [address] [place] #### LH #### [facility] ,Prolactinon 44-30-2239Vykwnzydf6.96 ng/mLNormal2.64-13.13[facility] Medical CenterComment on above:Result Comment: PERFORMED BY: [place] [address] PATHOLOGIST DOWEL MAKER LESTER ROSSI M.D.Performed By: #### TEST, PRL, FSH #### [place] [address] [place] #### LH #### [facility] ,Semen Analysis, Fertilityon 04-10-2917Rdqsfhgc Sperm Jymhhypdol64 %Normal [facility] Medical CenterComment on above:Result Comment: WHO Standards used to classify morphology.Performed By: #### SEMCOMP #### [place] [address] USAAbstinence Period, Semen48 HOURSNoParma Community General HospitalComment on above:Result Comment: BOTTLEPerformed By: #### SEMCOMP #### [place] [address] USAContainer Type, SemenOtherNormFairfield Medical CenterComment on above:Performed By: #### SEMCOMP #### [place] [address] USAImmature Sperm8 %NormalChillicothe Va Medical Center Comment on above:Performed By: #### SEMCOMP #### [place] [address] USAImmotile Sperm34 %[place] Comment on above:Performed By: #### SEMCOMP #### [facility] [address] [place] [address] USANon-Progression Sperm Motili3 %CentervilleComment on above:Performed By: #### SEMCOMP #### [place] [address] USANormal Sperm Wqzvzbanin40 %Normal>/=30[facility] Medical CenterComment on above:Result Comment: WHO Standards used to classify morphology.Performed By: #### SEMCOMP #### [place] [address] USARapid Progression Sperm Rbczqx03 %CentervilleComment on above:Result Comment: Reference: Total of Rapid and Slow Progression is >/= 50% or Rapid Progression only is >/= 25% Decreased motility percentage may be the result of non-viable or non-motile sperm.Performed By: #### SEMCOMP #### [place] [address] USARound Cell Concent, Semen7 10*6/mLHigh<1FSelect Medical TriHealth Rehabilitation HospitalComment on above:Result Comment: (Potentially WBC's)Performed By: #### SEMCOMP #### [place] [address] USASemen Collection MethodMasturbationNoParma Community General HospitalComment on above:Performed By: #### SEMCOMP #### [place] [address] USASemen LiquefactionLiquefied @ 180 min.CentervilleComment on above:Result Comment: PERFORMED BY: [place] [address] PATHOLOGIST DOWEL MAKER LESTER ROSSI M.D.Performed By: #### SEMCOMP #### [place] [address] USASemen ViscosityHighCritically abnormalCentervilleComment on above:Performed By: #### SEMCOMP #### [facility] [address] [place] [address] USASemen Volume3.5 mLNormal2.0-5.0[facility] Medical CenterComment on above:Performed By: #### SEMCOMP #### [place] [address] USASlow Progression Sperm Motili3 %NormalChillicothe Va Medical CenterComment on above:Performed By: #### SEMCOMP #### [place] [address] USASperm Bexthvhkupwrv97 10*6/mLNormal>=20[facility] Medical CenterComment on above:Performed By: #### SEMCOMP #### [place] [address] USATestosteroneon 22-88-0940Fqggmsskawdg5.56 ng/mLNormal 1.75-7.81[facility] Medical CenterComment on above:Result Comment: PERFORMED BY: [place] [address] PATHOLOGIST DOWEL MAKER LESTER ROSSI M.D.Performed By: #### TEST, PRL, FSH #### [place] [address] [place] #### LH #### [facility] , Encounters Encounter DateEncounter TypeCare ProviderFacilityStart: 11-22-2024 End: 04-21-4148jsqlshdyojCwhfete HARWOODFacility:[facility]upational Health and WellnessStart: 01-16-2022 End: 46-79-9366jxcwzruwzpFZ DANIEL A HERRINGFacility:M9Udfle: 10-28-2021 End: 13-56-9918ghysbfctdqJM MARK R SMITHFacility:J9Ygpny: 06-02-2021 End: 24-79-2556ncgqngevvbST MARK R SMITHFacility:Z3Vbhbz: 03-20-2021 End: 46-08-5425ojozaavodeHW DANIEL A HERRINGFacility:Q7Vqgar: 01-14-2017 End: 13-37-7951TqrpqzidjbZRKENZL PHYSICIANFacility:[facility] Centerrt: 01-03-2017 End: 36-80-8751EwhvsctslvGEHNDCC PHYSICIANFacility:[facility] Payers DatePayer CategoryPayerPolicy [id number]-[id number] [id number] Summary Purpose Family History No Family History [...] and content) DATE CREATED AUTHOR 08/12/2017 [facility] DATE CREATED AUTHOR AUTHOR'S ORGANIZ ATION 03/13/2021 [facility] DATE CREATED AUTHOR AUTHOR'S ORGANIZ ATION 01/19/2022 [facility] DATE CREATED AUTHOR AUTHOR'S ORGANIZ ATION 11/24/2024 [facility] FOR RECORDS PERTAINING TO PATIENTS WHO [...] BE BASED ON THE PRIMARY CLINICAL RECORDS. [employer] [facility]. provides no warranty or guarantee of the accuracy or completeness of information in this document.
== END 2025-01-28 16:46 | disposition home or self-care (01) ==
LOC: ER 16:39
PROVIDERS: Physician Assistant; Emergency Provider Emergency Medicine
DX: U07.1 COVID-19 (principal)
CPT/HCPCS: 87070; 87804; 87811; 87880; 99283; J1100